=== PATIENT | female | born 1955 | race Caucasian/White ===

== ENCOUNTER 2018-07-30 07:52 | Outpatient (CLI) | payer BC, OTHER ==
[~2018-07-30 07:52] MED LIST: ASPI-515 PO; MAGNESIUM COMPLEX; OMEG300C PO; RED YEAST RICE; UBID100C10 PO; VIT C PO; VIT D3 PO; [UNRECOGNIZED DRUG - OTHER] PO
== END 2018-07-30 23:59 | disposition home or self-care (01) ==
LOC: WOUND 07:52
PROVIDERS: ATTEND Family Medicine
DX: I87.313 Chronic venous hypertension (idiopathic) with ulcer of bilateral lower extremity (principal); L97.815 Non-pressure chronic ulcer of other part of right lower leg with muscle involvement without evidence of necrosis; L97.825 Non-pressure chronic ulcer of other part of left lower leg with muscle involvement without evidence of necrosis; L97.515 Non-pressure chronic ulcer of other part of right foot with muscle involvement without evidence of necrosis; L97.525 Non-pressure chronic ulcer of other part of left foot with muscle involvement without evidence of necrosis; L97.325 Non-pressure chronic ulcer of left ankle with muscle involvement without evidence of necrosis; I15.0 Renovascular hypertension; I48.2 Chronic atrial fibrillation; E66.01 Morbid (severe) obesity due to excess calories; Z68.28 Body mass index [BMI] 28.0-28.9, adult
CPT/HCPCS: 11043; 11046; 87070; 87077; 87186; 87205; 99215

== ENCOUNTER → 2018-08-03 | Outpatient (CLI) | payer OTHER | END | disposition home or self-care (01) | LOC: WOUND 07:52 | PROVIDERS: ATTEND Internal Medicine Cardiovascular Disease | DX: I87.313 Chronic venous hypertension (idiopathic) with ulcer of bilateral lower extremity (principal); L97.811 Non-pressure chronic ulcer of other part of right lower leg limited to breakdown of skin; L97.821 Non-pressure chronic ulcer of other part of left lower leg limited to breakdown of skin; I15.0 Renovascular hypertension; I48.2 Chronic atrial fibrillation; E66.01 Morbid (severe) obesity due to excess calories | CPT/HCPCS: G0463 ==

== ENCOUNTER → 2018-08-03 | Outpatient (CLI) | payer OTHER | END | disposition home or self-care (01) | LOC: RAD 10:03 | PROVIDERS: ATTEND Specialist | DX: R60.0 Localized edema (principal); L97.928 Non-pressure chronic ulcer of unspecified part of left lower leg with other specified severity; L97.918 Non-pressure chronic ulcer of unspecified part of right lower leg with other specified severity ==

== ENCOUNTER 2018-08-06 13:51 | Inpatient (IN) | payer OTHER ==
[~2018-08-06] VITALS: Ht 177.8 cm; Wt 108.6 kg
[~2018-08-06 13:51] MED LIST changes: -AMOX1TAB64 PO; -CLON0.1T22 PO; -DOXY100T PO
[2018-08-06 14:20] VITALS: BP 138/77
[2018-08-06] MEDS ORDERED: GENTAMICIN CRM 0.1%, 30GM TP SCH (15:00)
[2018-08-06] MEDS ORDERED: ONDANSETRON 2MG/ML, 2ML IVPush PRN (15:30)
[2018-08-06] MEDS ORDERED: LABETALOL 5MG/ML, 20ML IVPush PRN (15:30)
[2018-08-06] MEDS ORDERED: BISACODYL 10 MG SUPP PR PRN (15:30)
[2018-08-06] MEDS ORDERED: ONDANSETRON ODT 4 MG PO PRN (15:30)
[2018-08-06] MEDS ORDERED: ENALAPRILAT 1.25 MG/ML, 2ML IVPush PRN (15:30)
[2018-08-06] MEDS ORDERED: DOCUSATE 100 MG CAPSULE PO PRN (15:30)
[2018-08-06] MEDS ORDERED: ACETAMINOPHEN 325 MG TABLET PO PRN (15:30)
[2018-08-06] MEDS: SODIUM CHLORIDE 0.9% 1,000 ML IV SCH (16:05)
[2018-08-06] MEDS: ENOXAPARIN 40 MG/0.4 ML SQ SCH (16:06)
[2018-08-06 16:24] LABS: BASOPHILS # (AUTO) 0.07 x10^3/uL (0-0.1); BASOPHILS % (AUTO) 1 % (0-1); EOSINOPHILS # (AUTO) 0.14 x10^3/uL (0-0.4); EOSINOPHILS % (AUTO) 1 % (1-7); LYMPHOCYTES % (AUTO) 9 % (22-44); MD NO; MEAN CORPUSCULAR HEMOGLOBIN 26.9 pg (27.0-34.8); MEAN CORPUSCULAR HGB CONC 32.5 g/dL (32.4-35.8); MEAN CORPUSCULAR VOLUME 82.7 fL (80-100); MEAN PLATELET VOLUME 8.1 fL (7.4-10.4); MONOCYTES % (AUTO) 7 % (2-9); NEUTROPHILS # (AUTO) 10.07 x10^3/uL (1.8-6.8); NEUTROPHILS % (AUTO) 83 % (42-75); PLATELET COUNT 401 x10^3/uL (130-400); RED BLOOD COUNT 4.68 x10^6/uL (3.82-5.3); RED CELL DISTRIBUTION WIDTH 18.5 % (9.6-15.2)
[2018-08-06 16:25] LABS: HCT (SEDRATE) 38.4 % (34.6-47.8)
[2018-08-06] MEDS ORDERED: VANCOMYCIN PER PHARMACY MC PRN (16:30)
[2018-08-06 16:35] LABS: ANION GAP 9 mmol/L (5-15); CHLORIDE 100 mmol/L (98-107); CREATININE 1.45 mg/dL (0.55-1.02)
[2018-08-06] MEDS: PIPERACILLIN/TAZO/PMX 3.375GM 50 ML IV SCH ×2 (16:53→22:59)
[2018-08-06] MEDS: DAKIN'S SOLUTION 1/4 STRENGTH 1,000 ML IRRIG SOLN EXT SCH (16:53)
[2018-08-06 19:57] VITALS: BP 157/97
[2018-08-06] MEDS ORDERED: PHARMACOKINETIC MONITORING MC PRN (20:00)
[2018-08-06] MEDS ORDERED: VANCOMYCIN 1,800 MG in SODIUM CHLORIDE 0.9% 250 ML IV ONE (20:00)
[2018-08-07 00:23] VITALS: BP 152/89
[2018-08-07] MEDS: PIPERACILLIN/TAZO/PMX 3.375GM 50 ML IV SCH ×2 (04:35→10:50)
[2018-08-07] MEDS: SODIUM CHLORIDE 0.9% 1,000 ML IV SCH ×2 (04:36→14:55)
[2018-08-07 05:22] LABS: BASOPHILS # (AUTO) 0.05 x10^3/uL (0-0.1); BASOPHILS % (AUTO) 0 % (0-1); EOSINOPHILS # (AUTO) 0.15 x10^3/uL (0-0.4); EOSINOPHILS % (AUTO) 1 % (1-7); LYMPHOCYTES # (AUTO) 0.83 x10^3/uL (1-3.4); LYMPHOCYTES % (AUTO) 6 % (22-44); MD NO; MEAN CORPUSCULAR HEMOGLOBIN 26.6 pg (27.0-34.8); MEAN CORPUSCULAR HGB CONC 32.1 g/dL (32.4-35.8); MEAN CORPUSCULAR VOLUME 82.8 fL (80-100); MEAN PLATELET VOLUME 7.9 fL (7.4-10.4); MONOCYTES % (AUTO) 7 % (2-9); NEUTROPHILS % (AUTO) 86 % (42-75); PLATELET COUNT 318 x10^3/uL (130-400); RED CELL DISTRIBUTION WIDTH 18.5 % (9.6-15.2)
[2018-08-07 05:32] LABS: ANION GAP 6 mmol/L (5-15); CALCIUM 8.4 mg/dL (8.5-10.1); CHLORIDE 108 mmol/L (98-107)
[2018-08-07 07:00] VITALS: BP 144/84
[2018-08-07] MEDS ORDERED: UBIDECARENONE 300 MG PO SCH (09:00)
[2018-08-07] MEDS: SENNA/DOCUSATE TABLET PO SCH (09:00)
[2018-08-07] MEDS ORDERED: [UNRECOGNIZED DRUG - OTHER] PO SCH (09:00)
[2018-08-07] MEDS ORDERED: ASCORBIC ACID PO SCH (09:00)
[2018-08-07] MEDS ORDERED: GENTAMICIN OINT 0.1% 15GM TP SCH (09:00)
[2018-08-07 12:20] LABS: HEMOGLOBIN A1C 5.5 % (4.2-6.3)
[2018-08-07] MEDS: DAKIN'S SOLUTION 1/4 STRENGTH 1,000 ML IRRIG SOLN EXT SCH (13:15)
[2018-08-07] MEDS: GENTAMICIN OINT 0.1% 15GM TP SCH (13:15)
[2018-08-07 15:16] VITALS: BP 141/91
[2018-08-07] MEDS: ENOXAPARIN 40 MG/0.4 ML SQ SCH (15:30)
[2018-08-07] MEDS: PIPERACILLIN/TAZO/PMX 4.5GM 100 ML IV SCH (16:20)
[2018-08-07 19:55] VITALS: BP 138/91
[2018-08-08 00:39] VITALS: BP 160/99
[2018-08-08] MEDS: SODIUM CHLORIDE 0.9% 1,000 ML IV SCH ×2 (00:41→12:17)
[2018-08-08] MEDS: PIPERACILLIN/TAZO/PMX 4.5GM 100 ML IV SCH ×3 (00:42→17:04)
[2018-08-08 05:34] LABS: BASOPHILS # (AUTO) 0.03 x10^3/uL (0-0.1); BASOPHILS % (AUTO) 0 % (0-1); EOSINOPHILS # (AUTO) 0.23 x10^3/uL (0-0.4); EOSINOPHILS % (AUTO) 2 % (1-7); LYMPHOCYTES # (AUTO) 1.02 x10^3/uL (1-3.4); LYMPHOCYTES % (AUTO) 11 % (22-44); MD NO; MEAN CORPUSCULAR HGB CONC 32.9 g/dL (32.4-35.8); MONOCYTES # (AUTO) 0.58 x10^3/uL (0.2-0.8); MONOCYTES % (AUTO) 6 % (2-9); NEUTROPHILS # (AUTO) 7.67 x10^3/uL (1.8-6.8); NEUTROPHILS % (AUTO) 81 % (42-75); PLATELET COUNT 334 x10^3/uL (130-400); RED BLOOD COUNT 4.21 x10^6/uL (3.82-5.3); RED CELL DISTRIBUTION WIDTH 18.7 % (9.6-15.2)
[2018-08-08 05:41] LABS: ANION GAP 6 mmol/L (5-15); CALCIUM 8.2 mg/dL (8.5-10.1); CHLORIDE 109 mmol/L (98-107)
[2018-08-08 07:36] VITALS: BP 154/98
[2018-08-08] MEDS: SENNA/DOCUSATE TABLET PO SCH (08:10)
[2018-08-08] MEDS: DAKIN'S SOLUTION 1/4 STRENGTH 1,000 ML IRRIG SOLN EXT SCH (08:10)
[2018-08-08] MEDS: GENTAMICIN OINT 0.1% 15GM TP SCH (08:11)
[2018-08-08] MEDS: ENOXAPARIN 40 MG/0.4 ML SQ SCH (12:19)
[2018-08-08] MEDS ORDERED: MIDAZOLAM 1 MG/ML, 2ML ONE (14:37)
[2018-08-08] MEDS ORDERED: FENTANYL PF 100 MCG/2ML ONE ×4 (14:37→16:09)
[2018-08-08] MEDS ORDERED: ONDANSETRON 2MG/ML, 2ML ONE (14:43)
[2018-08-08] MEDS ORDERED: PROPOFOL 10 MG/ML, 20ML ONE (14:43)
[2018-08-08] MEDS ORDERED: ESMOLOL 100 MG/10 ML ONE (14:43)
[2018-08-08] MEDS ORDERED: SUCCINYLCHOLINE 20 MG/ML, 10ML ONE (14:43)
[2018-08-08] MEDS ORDERED: HYDROmorphone 2 MG/ML, 1ML ONE (15:55)
[2018-08-08] MEDS ORDERED: OXYcodone 5 MG/5 ML ORAL.SOL UDC ONE (15:55)
[2018-08-08] MEDS: FENTANYL PF 100 MCG/2ML IV PRN ×4 (15:56→16:45)
[2018-08-08] MEDS ORDERED: ACETAMINOPHEN 650 MG/20.3 ML UDC ONE (15:56)
[2018-08-08] MEDS ORDERED: OXYcodone 5 MG/5 ML ORAL.SOL UDC PO PRN (16:00)
[2018-08-08] MEDS ORDERED: ACETAMINOPHEN 325 MG TABLET PO PRN (16:00)
[2018-08-08] MEDS ORDERED: KETOROLAC 30 MG/1 ML IV PRN (16:00)
[2018-08-08] MEDS ORDERED: MEPERIDINE/PF 25MG/0.5ML IVPush PRN (16:00)
[2018-08-08] MEDS ORDERED: METOCLOPRAMIDE 5 MG/ML, 2ML IV PRN (16:00)
[2018-08-08] MEDS ORDERED: LABETALOL 5MG/ML, 20ML IV PRN (16:00)
[2018-08-08] MEDS ORDERED: METOPROLOL 1 MG/ML, 5ML IV PRN (16:00)
[2018-08-08] MEDS: HYDROmorphone 2 MG/ML, 1ML IVPush PRN ×4 (16:01→16:34)
[2018-08-08] MEDS ORDERED: LORazepam 2 MG/ML, 1ML ONE (16:02)
[2018-08-08] MEDS: LORazepam 2 MG/ML, 1ML IVPush PRN ×3 (16:05→16:21)
[2018-08-08 20:05] VITALS: BP 155/98
[2018-08-09] VITALS: BP 108/75
[2018-08-09 00:01] VITALS: BP 120/72
[2018-08-09] MEDS: PIPERACILLIN/TAZO/PMX 4.5GM 100 ML IV SCH ×3 (01:18→17:12)
[2018-08-09] MEDS: SODIUM CHLORIDE 0.9% 1,000 ML IV SCH ×3 (01:19→22:44)
[2018-08-09 04:11] VITALS: BP 136/82
[2018-08-09] MEDS: HYDROcodone/APAP 5/325 TABLET PO PRN ×3 (04:36→21:47)
[2018-08-09 07:15] VITALS: BP 130/65
[2018-08-09] MEDS: DAKIN'S SOLUTION 1/4 STRENGTH 1,000 ML IRRIG SOLN EXT SCH (08:29)
[2018-08-09] MEDS: GENTAMICIN OINT 0.1% 15GM TP SCH (08:29)
[2018-08-09] MEDS: SENNA/DOCUSATE TABLET PO SCH (08:29)
[2018-08-09 13:15] VITALS: BP 153/90
[2018-08-09 13:27] LABS: CULTURE INDICATED? YES; MICROSCOPIC INDICATED
[2018-08-09] MEDS: ENOXAPARIN 40 MG/0.4 ML SQ SCH (15:35)
[2018-08-09 20:02] VITALS: BP 156/93
[2018-08-10] MEDS: PIPERACILLIN/TAZO/PMX 4.5GM 100 ML IV SCH ×3 (01:51→16:42)
[2018-08-10 02:30] VITALS: BP 140/82
[2018-08-10 07:37] VITALS: BP 152/88
[2018-08-10] MEDS: DOXYCYCLINE 100MG TABLET PO SCH ×2 (08:56→21:43)
[2018-08-10] MEDS: SENNA/DOCUSATE TABLET PO SCH (08:56)
[2018-08-10] MEDS: GENTAMICIN OINT 0.1% 15GM TP SCH (08:57)
[2018-08-10] MEDS: SODIUM CHLORIDE 0.9% 1,000 ML IV SCH ×2 (08:58→19:51)
[2018-08-10 13:59] VITALS: BP 154/99
[2018-08-10] MEDS: ENOXAPARIN 40 MG/0.4 ML SQ SCH (16:09)
[2018-08-10 19:04] VITALS: BP 150/97
[2018-08-10] MEDS: HYDROcodone/APAP 5/325 TABLET PO PRN (22:04)
[2018-08-11] MEDS: PIPERACILLIN/TAZO/PMX 4.5GM 100 ML IV SCH ×3 (01:25→20:20)
[2018-08-11 03:11] VITALS: BP 130/91
[2018-08-11] MEDS: SODIUM CHLORIDE 0.9% 1,000 ML IV SCH ×2 (06:14→20:19)
[2018-08-11 07:30] VITALS: BP 153/99
[2018-08-11] MEDS: SENNA/DOCUSATE TABLET PO SCH (09:10)
[2018-08-11] MEDS: DOXYCYCLINE 100MG TABLET PO SCH ×2 (09:10→13:33)
[2018-08-11] MEDS: GENTAMICIN OINT 0.1% 15GM TP SCH (09:11)
[2018-08-11 13:06] VITALS: BP 155/102
[2018-08-11] MEDS: HYDROcodone/APAP 5/325 TABLET PO PRN (13:33)
[2018-08-11] MEDS ORDERED: MORPHINE SULFATE 4 MG/ML, 1ML IVPush ONE ×3 (14:30→15:00)
[2018-08-11] MEDS ORDERED: morphine SULFATE 10 MG/ML, 1ML ONE ×2 (14:31→14:54)
[2018-08-11 15:15] LABS: CLOSTRIDIUM DIFFICILE ANTIGEN NEGATIVE; CLOSTRIDIUM DIFFICILE TOXIN NEGATIVE (Negative)
[2018-08-11] MEDS: ENOXAPARIN 40 MG/0.4 ML SQ SCH (15:29)
[2018-08-11 19:22] VITALS: BP 142/89
[2018-08-12 01:14] VITALS: BP 153/65
[2018-08-12] MEDS: SODIUM CHLORIDE 0.9% 1,000 ML IV SCH ×2 (04:33→17:32)
[2018-08-12] MEDS: PIPERACILLIN/TAZO/PMX 4.5GM 100 ML IV SCH ×3 (04:33→20:26)
[2018-08-12 07:39] LABS: INTERNATIONAL NORMALIZED RATIO 1.14 (0.93-1.1)
[2018-08-12 07:50] VITALS: BP 158/95
[2018-08-12] MEDS ORDERED: hydrALAzine 20 MG/ML, 1ML IV ONE (08:30)
[2018-08-12] MEDS: FLUCONAZOLE 200 MG TABLET PO SCH (09:00)
[2018-08-12] MEDS: DOXYCYCLINE 100MG TABLET PO SCH ×2 (09:00→20:26)
[2018-08-12] MEDS: SENNA/DOCUSATE TABLET PO SCH (09:00)
[2018-08-12] MEDS: GENTAMICIN OINT 0.1% 15GM TP SCH (09:00)
[2018-08-12 13:25] VITALS: BP 143/89
[2018-08-12] MEDS ORDERED: LIDOCAINE-MPF 1%, 5ML ONE (13:45)
[2018-08-12] MEDS ORDERED: MIDAZOLAM 1 MG/ML, 5ML ONE (14:11)
[2018-08-12] MEDS ORDERED: FLUMAZENIL 0.1 MG/1 ML, 5ML ONE (14:11)
[2018-08-12] MEDS ORDERED: NALOXONE 1 MG/ML, 2ML ONE (14:11)
[2018-08-12] MEDS ORDERED: FENTANYL PF 100 MCG/2ML ONE (14:11)
[2018-08-12] MEDS: ENOXAPARIN 40 MG/0.4 ML SQ SCH (17:31)
[2018-08-12 18:58] VITALS: BP 160/99
[2018-08-13 00:27] VITALS: BP 154/90
[2018-08-13] MEDS: SODIUM CHLORIDE 0.9% 1,000 ML IV SCH ×2 (03:03→12:00)
[2018-08-13] MEDS: PIPERACILLIN/TAZO/PMX 4.5GM 100 ML IV SCH ×2 (03:38→12:00)
[2018-08-13 05:23] LABS: BASOPHILS # (AUTO) 0.02 x10^3/uL (0-0.1); BASOPHILS % (AUTO) 0 % (0-1); EOSINOPHILS # (AUTO) 0.24 x10^3/uL (0-0.4); EOSINOPHILS % (AUTO) 2 % (1-7); LYMPHOCYTES # (AUTO) 0.86 x10^3/uL (1-3.4); LYMPHOCYTES % (AUTO) 9 % (22-44); MD NO; MEAN CORPUSCULAR HEMOGLOBIN 27.6 pg (27.0-34.8); MEAN CORPUSCULAR VOLUME 83.6 fL (80-100); MEAN PLATELET VOLUME 7.8 fL (7.4-10.4); MONOCYTES # (AUTO) 0.53 x10^3/uL (0.2-0.8); MONOCYTES % (AUTO) 5 % (2-9); NEUTROPHILS # (AUTO) 8.37 x10^3/uL (1.8-6.8); NEUTROPHILS % (AUTO) 84 % (42-75); PLATELET COUNT 332 x10^3/uL (130-400); RED BLOOD COUNT 4.01 x10^6/uL (3.82-5.3); RED CELL DISTRIBUTION WIDTH 19.4 % (9.6-15.2)
[2018-08-13 05:29] LABS: ANION GAP 6 mmol/L (5-15); CALCIUM 8.5 mg/dL (8.5-10.1); CHLORIDE 112 mmol/L (98-107); CREATININE 0.82 mg/dL (0.55-1.02)
[2018-08-13 06:52] VITALS: BP 155/96
[2018-08-13] MEDS: FLUCONAZOLE 200 MG TABLET PO SCH (08:36)
[2018-08-13] MEDS: DOXYCYCLINE 100MG TABLET PO SCH (08:36)
[2018-08-13] MEDS: GENTAMICIN OINT 0.1% 15GM TP SCH (09:00)
[2018-08-13] MEDS: SENNA/DOCUSATE TABLET PO SCH (09:00)
[2018-08-13] MEDS ORDERED: DOXY100T PO (10:33)
[2018-08-13] MEDS ORDERED: AMOX1TAB64 PO (10:33)
[2018-08-13] MEDS ORDERED: CLON0.1T22 PO (10:33)
[2018-08-13 12:28] VITALS: BP 153/87
== END 2018-08-13 13:09 | disposition home or self-care (01) | DRG 580 ==
LOC: 4NOR 13:51 → DCLOUNGE 08-13 12:50
PROVIDERS: ADMIT Internal Medicine; ATTEND Family Medicine
PROC: 0KBS0ZZ Excision of Right Lower Leg Muscle, Open Approach (ICD-10-PCS; 2018-08-08)
PROC: 0KBT0ZZ Excision of Left Lower Leg Muscle, Open Approach (ICD-10-PCS; principal; 2018-08-08 15:00)
DX: L88 Pyoderma gangrenosum (principal); B37.49 Other urogenital candidiasis; N17.9 Acute kidney failure, unspecified; L03.116 Cellulitis of left lower limb; L03.115 Cellulitis of right lower limb; L97.519 Non-pressure chronic ulcer of other part of right foot with unspecified severity; L97.529 Non-pressure chronic ulcer of other part of left foot with unspecified severity; I48.91 Unspecified atrial fibrillation; E66.01 Morbid (severe) obesity due to excess calories; Z16.24 Resistance to multiple antibiotics; Z66 Do not resuscitate; Z91.19 Patient's noncompliance with other medical treatment and regimen; B95.61 Methicillin susceptible Staphylococcus aureus infection as the cause of diseases classified elsewhere; B96.89 Other specified bacterial agents as the cause of diseases classified elsewhere; Z68.34 Body mass index [BMI] 34.0-34.9, adult; I12.9 Hypertensive chronic kidney disease with stage 1 through stage 4 chronic kidney disease, or unspecified chronic kidney disease; N18.9 Chronic kidney disease, unspecified; I87.8 Other specified disorders of veins
CPT/HCPCS: 36415; 80048; 81001; 82570; 82784; 83036; 83735; 83993; 84155; 84156; 84165; 84166; 84439; 84443; 85025; 85610; 85651; 86140; 86160; 86162; 86256; 86334; 86335; 86430; 86803; 87040; 87070; 87077; 87086; 87106; 87186; 87205; 87324; 87340; 88304; 88312; 93005; 93922; 97163; G0378; J1170; J1650; J2250; J2405; J2543; J2704; J3010; J3370; J0330; J0360; J2060; J2310; J7030; J7050

== ENCOUNTER → 2018-08-06 | Outpatient (CLI) | payer OTHER ==
[~2018-08-06] MED LIST changes: +AMOX1TAB64 PO; +CLON0.1T22 PO; +DOXY100T PO
== END | disposition home or self-care (01) ==
LOC: WOUND 08:05
PROVIDERS: ATTEND Family Medicine
DX: I87.313 Chronic venous hypertension (idiopathic) with ulcer of bilateral lower extremity (principal); L97.515 Non-pressure chronic ulcer of other part of right foot with muscle involvement without evidence of necrosis; L97.811 Non-pressure chronic ulcer of other part of right lower leg limited to breakdown of skin; L97.821 Non-pressure chronic ulcer of other part of left lower leg limited to breakdown of skin; L97.521 Non-pressure chronic ulcer of other part of left foot limited to breakdown of skin; L97.321 Non-pressure chronic ulcer of left ankle limited to breakdown of skin; L08.0 Pyoderma; I15.0 Renovascular hypertension; I48.2 Chronic atrial fibrillation; E66.01 Morbid (severe) obesity due to excess calories; Z68.28 Body mass index [BMI] 28.0-28.9, adult
CPT/HCPCS: 99215

== ENCOUNTER → 2018-08-16 | Outpatient (CLI) | payer OTHER ==
[~2018-08-16] MED LIST changes: +AMOX1TAB64 PO; +CLON0.1T22 PO; +DOXY100T PO
== END | disposition home or self-care (01) ==
LOC: WOUND 13:05
PROVIDERS: ATTEND Family Medicine
DX: I87.313 Chronic venous hypertension (idiopathic) with ulcer of bilateral lower extremity (principal); L97.811 Non-pressure chronic ulcer of other part of right lower leg limited to breakdown of skin; L97.515 Non-pressure chronic ulcer of other part of right foot with muscle involvement without evidence of necrosis; L97.821 Non-pressure chronic ulcer of other part of left lower leg limited to breakdown of skin; L97.321 Non-pressure chronic ulcer of left ankle limited to breakdown of skin; L97.521 Non-pressure chronic ulcer of other part of left foot limited to breakdown of skin; I12.9 Hypertensive chronic kidney disease with stage 1 through stage 4 chronic kidney disease, or unspecified chronic kidney disease; N18.9 Chronic kidney disease, unspecified; I48.2 Chronic atrial fibrillation; E66.01 Morbid (severe) obesity due to excess calories; Z68.28 Body mass index [BMI] 28.0-28.9, adult
CPT/HCPCS: 97597; 97598

== ENCOUNTER → 2018-08-18 | Outpatient (CLI) | payer OTHER | END | disposition home or self-care (01) | LOC: WOUND 13:00 | PROVIDERS: ATTEND Internal Medicine Cardiovascular Disease | DX: I87.313 Chronic venous hypertension (idiopathic) with ulcer of bilateral lower extremity (principal); L97.815 Non-pressure chronic ulcer of other part of right lower leg with muscle involvement without evidence of necrosis; L97.511 Non-pressure chronic ulcer of other part of right foot limited to breakdown of skin; L97.821 Non-pressure chronic ulcer of other part of left lower leg limited to breakdown of skin; L97.321 Non-pressure chronic ulcer of left ankle limited to breakdown of skin; L97.521 Non-pressure chronic ulcer of other part of left foot limited to breakdown of skin; I12.9 Hypertensive chronic kidney disease with stage 1 through stage 4 chronic kidney disease, or unspecified chronic kidney disease; N18.9 Chronic kidney disease, unspecified; I48.2 Chronic atrial fibrillation; Z68.28 Body mass index [BMI] 28.0-28.9, adult; E66.01 Morbid (severe) obesity due to excess calories | CPT/HCPCS: 29581 ==

== ENCOUNTER → 2018-08-20 | Outpatient (CLI) | payer OTHER | END | disposition home or self-care (01) | LOC: WOUND 12:50 | PROVIDERS: ATTEND Family Medicine | DX: I87.313 Chronic venous hypertension (idiopathic) with ulcer of bilateral lower extremity (principal); L97.811 Non-pressure chronic ulcer of other part of right lower leg limited to breakdown of skin; L97.821 Non-pressure chronic ulcer of other part of left lower leg limited to breakdown of skin; I12.9 Hypertensive chronic kidney disease with stage 1 through stage 4 chronic kidney disease, or unspecified chronic kidney disease; N18.9 Chronic kidney disease, unspecified; I48.2 Chronic atrial fibrillation; E66.01 Morbid (severe) obesity due to excess calories | CPT/HCPCS: 29581 ==

== ENCOUNTER → 2018-08-23 | Outpatient (CLI) | payer BC, OTHER | END | disposition home or self-care (01) | LOC: WOUND 14:13 | PROVIDERS: ATTEND Family Medicine | DX: I87.313 Chronic venous hypertension (idiopathic) with ulcer of bilateral lower extremity (principal); L97.515 Non-pressure chronic ulcer of other part of right foot with muscle involvement without evidence of necrosis; L97.825 Non-pressure chronic ulcer of other part of left lower leg with muscle involvement without evidence of necrosis; L97.525 Non-pressure chronic ulcer of other part of left foot with muscle involvement without evidence of necrosis; L97.321 Non-pressure chronic ulcer of left ankle limited to breakdown of skin; I12.9 Hypertensive chronic kidney disease with stage 1 through stage 4 chronic kidney disease, or unspecified chronic kidney disease; N18.9 Chronic kidney disease, unspecified; I48.2 Chronic atrial fibrillation; E66.01 Morbid (severe) obesity due to excess calories | CPT/HCPCS: 11042; 11043; 11046; 97597; 97598 ==

== ENCOUNTER 2018-08-27 14:05 | Outpatient (CLI) | payer OTHER | END 2018-08-27 23:59 | disposition home or self-care (01) | LOC: WOUND 14:05 | PROVIDERS: ATTEND Internal Medicine Cardiovascular Disease | DX: I87.313 Chronic venous hypertension (idiopathic) with ulcer of bilateral lower extremity (principal); L97.811 Non-pressure chronic ulcer of other part of right lower leg limited to breakdown of skin; L97.821 Non-pressure chronic ulcer of other part of left lower leg limited to breakdown of skin; I12.9 Hypertensive chronic kidney disease with stage 1 through stage 4 chronic kidney disease, or unspecified chronic kidney disease; N18.9 Chronic kidney disease, unspecified; I48.2 Chronic atrial fibrillation; E66.01 Morbid (severe) obesity due to excess calories | CPT/HCPCS: 29581 ==

== ENCOUNTER → 2018-08-31 | Outpatient (CLI) | payer BC, OTHER | END | disposition home or self-care (01) | LOC: WOUND 10:57 | PROVIDERS: ATTEND Internal Medicine Cardiovascular Disease | DX: I87.313 Chronic venous hypertension (idiopathic) with ulcer of bilateral lower extremity (principal); L97.811 Non-pressure chronic ulcer of other part of right lower leg limited to breakdown of skin; L97.821 Non-pressure chronic ulcer of other part of left lower leg limited to breakdown of skin; I12.9 Hypertensive chronic kidney disease with stage 1 through stage 4 chronic kidney disease, or unspecified chronic kidney disease; N18.9 Chronic kidney disease, unspecified; I48.2 Chronic atrial fibrillation; E66.01 Morbid (severe) obesity due to excess calories | CPT/HCPCS: 29581 ==

== ENCOUNTER 2018-09-03 13:43 | Outpatient (CLI) | payer BC | END 2018-09-03 23:59 | disposition home or self-care (01) | LOC: WOUND 13:43 | PROVIDERS: ATTEND Family Medicine | DX: I87.313 Chronic venous hypertension (idiopathic) with ulcer of bilateral lower extremity (principal); L97.812 Non-pressure chronic ulcer of other part of right lower leg with fat layer exposed; L97.515 Non-pressure chronic ulcer of other part of right foot with muscle involvement without evidence of necrosis; L97.822 Non-pressure chronic ulcer of other part of left lower leg with fat layer exposed; L97.525 Non-pressure chronic ulcer of other part of left foot with muscle involvement without evidence of necrosis; L97.322 Non-pressure chronic ulcer of left ankle with fat layer exposed; I13.10 Hypertensive heart and chronic kidney disease without heart failure, with stage 1 through stage 4 chronic kidney disease, or unspecified chronic kidney disease; N18.9 Chronic kidney disease, unspecified; I15.0 Renovascular hypertension; I48.2 Chronic atrial fibrillation; E66.01 Morbid (severe) obesity due to excess calories | CPT/HCPCS: 11042; 11045 ==

== ENCOUNTER → 2018-09-07 | Outpatient (CLI) | payer BC | END | disposition home or self-care (01) | LOC: WOUND 13:10 | PROVIDERS: ATTEND Nurse Practitioner Family | DX: I87.313 Chronic venous hypertension (idiopathic) with ulcer of bilateral lower extremity (principal); I12.9 Hypertensive chronic kidney disease with stage 1 through stage 4 chronic kidney disease, or unspecified chronic kidney disease; N18.9 Chronic kidney disease, unspecified; I48.2 Chronic atrial fibrillation; E66.01 Morbid (severe) obesity due to excess calories; Z68.28 Body mass index [BMI] 28.0-28.9, adult | CPT/HCPCS: 99215 ==

== ENCOUNTER 2018-09-10 13:21 | Outpatient (CLI) | payer BC | END 2018-09-10 23:59 | disposition home or self-care (01) | LOC: WOUND 13:21 | PROVIDERS: ATTEND Family Medicine | DX: I87.313 Chronic venous hypertension (idiopathic) with ulcer of bilateral lower extremity (principal); L97.815 Non-pressure chronic ulcer of other part of right lower leg with muscle involvement without evidence of necrosis; L97.515 Non-pressure chronic ulcer of other part of right foot with muscle involvement without evidence of necrosis; L97.825 Non-pressure chronic ulcer of other part of left lower leg with muscle involvement without evidence of necrosis; L97.525 Non-pressure chronic ulcer of other part of left foot with muscle involvement without evidence of necrosis; L97.325 Non-pressure chronic ulcer of left ankle with muscle involvement without evidence of necrosis; I15.0 Renovascular hypertension; I48.2 Chronic atrial fibrillation; E66.01 Morbid (severe) obesity due to excess calories; Z68.28 Body mass index [BMI] 28.0-28.9, adult | CPT/HCPCS: 11042; 11043; 11045; 11046 ==

== ENCOUNTER → 2018-09-14 | Outpatient (CLI) | payer BC | END | disposition home or self-care (01) | LOC: WOUND 13:56 | PROVIDERS: ATTEND Nurse Practitioner Family | DX: I87.313 Chronic venous hypertension (idiopathic) with ulcer of bilateral lower extremity (principal); L97.812 Non-pressure chronic ulcer of other part of right lower leg with fat layer exposed; L97.515 Non-pressure chronic ulcer of other part of right foot with muscle involvement without evidence of necrosis; L97.822 Non-pressure chronic ulcer of other part of left lower leg with fat layer exposed; L97.525 Non-pressure chronic ulcer of other part of left foot with muscle involvement without evidence of necrosis; L97.322 Non-pressure chronic ulcer of left ankle with fat layer exposed; I13.10 Hypertensive heart and chronic kidney disease without heart failure, with stage 1 through stage 4 chronic kidney disease, or unspecified chronic kidney disease; N18.9 Chronic kidney disease, unspecified; I15.0 Renovascular hypertension; I48.2 Chronic atrial fibrillation; E66.01 Morbid (severe) obesity due to excess calories | CPT/HCPCS: 29581 ==

== ENCOUNTER → 2018-09-17 | Outpatient (CLI) | payer BC | END | disposition home or self-care (01) | LOC: WOUND 13:42 | PROVIDERS: ATTEND Family Medicine | DX: I87.313 Chronic venous hypertension (idiopathic) with ulcer of bilateral lower extremity (principal); L97.811 Non-pressure chronic ulcer of other part of right lower leg limited to breakdown of skin; L97.515 Non-pressure chronic ulcer of other part of right foot with muscle involvement without evidence of necrosis; L97.821 Non-pressure chronic ulcer of other part of left lower leg limited to breakdown of skin; L97.321 Non-pressure chronic ulcer of left ankle limited to breakdown of skin; L97.525 Non-pressure chronic ulcer of other part of left foot with muscle involvement without evidence of necrosis; I15.0 Renovascular hypertension; I48.2 Chronic atrial fibrillation; E66.01 Morbid (severe) obesity due to excess calories; Z68.28 Body mass index [BMI] 28.0-28.9, adult | CPT/HCPCS: 97597; 97598 ==

== ENCOUNTER → 2018-09-21 | Outpatient (CLI) | payer BC | END | disposition home or self-care (01) | LOC: WOUND 10:54 | PROVIDERS: ATTEND Internal Medicine | DX: I87.313 Chronic venous hypertension (idiopathic) with ulcer of bilateral lower extremity (principal); L97.811 Non-pressure chronic ulcer of other part of right lower leg limited to breakdown of skin; L97.821 Non-pressure chronic ulcer of other part of left lower leg limited to breakdown of skin; I12.9 Hypertensive chronic kidney disease with stage 1 through stage 4 chronic kidney disease, or unspecified chronic kidney disease; N18.9 Chronic kidney disease, unspecified; I48.2 Chronic atrial fibrillation; E66.01 Morbid (severe) obesity due to excess calories | CPT/HCPCS: 29581 ==

== ENCOUNTER → 2018-09-24 | Outpatient (CLI) | payer BC | END | disposition home or self-care (01) | LOC: WOUND 13:01 | PROVIDERS: ATTEND Family Medicine | DX: I87.313 Chronic venous hypertension (idiopathic) with ulcer of bilateral lower extremity (principal); L97.525 Non-pressure chronic ulcer of other part of left foot with muscle involvement without evidence of necrosis; L97.515 Non-pressure chronic ulcer of other part of right foot with muscle involvement without evidence of necrosis; L97.811 Non-pressure chronic ulcer of other part of right lower leg limited to breakdown of skin; L97.821 Non-pressure chronic ulcer of other part of left lower leg limited to breakdown of skin; L97.321 Non-pressure chronic ulcer of left ankle limited to breakdown of skin; I15.0 Renovascular hypertension; I48.2 Chronic atrial fibrillation; I48.91 Unspecified atrial fibrillation; E66.01 Morbid (severe) obesity due to excess calories; Z68.28 Body mass index [BMI] 28.0-28.9, adult | CPT/HCPCS: 97597; 97598 ==

== ENCOUNTER 2018-09-28 08:02 | Day surgery (SDC) | payer BC ==
[~2018-09-28] VITALS: Ht 177.8 cm; Wt 111.0 kg
[2018-09-28 08:55] VITALS: BP 195/118
[2018-09-28] MEDS ORDERED: LABETALOL 5MG/ML, 20ML IV PRN (09:00)
[2018-09-28] MEDS ORDERED: OXYcodone 5 MG/5 ML ORAL.SOL UDC PO PRN (09:00)
[2018-09-28] MEDS ORDERED: FENTANYL PF 100 MCG/2ML IV PRN (09:00)
[2018-09-28] MEDS ORDERED: MEPERIDINE/PF 25MG/0.5ML IVPush PRN (09:00)
[2018-09-28] MEDS ORDERED: HYDROmorphone 1 MG/ML, 1ML IV PRN (09:00)
[2018-09-28] MEDS ORDERED: MIDAZOLAM 1 MG/ML, 2ML IV PRN (09:00)
[2018-09-28] MEDS ORDERED: ONDANSETRON 2MG/ML, 2ML IVPush PRN (09:00)
[2018-09-28] MEDS ORDERED: LACTATED RINGERS 1,000 ML IV SCH (09:33)
[2018-09-28] MEDS ORDERED: PROPOFOL 10 MG/ML, 20ML ONE (09:59)
== END 2018-09-28 12:05 | disposition home or self-care (01) ==
LOC: OUT 08:02
PROVIDERS: ATTEND Internal Medicine
DX: D12.2 Benign neoplasm of ascending colon (principal); D12.5 Benign neoplasm of sigmoid colon; K62.89 Other specified diseases of anus and rectum; K57.30 Diverticulosis of large intestine without perforation or abscess without bleeding; K64.8 Other hemorrhoids; K62.6 Ulcer of anus and rectum; I10 Essential (primary) hypertension
CPT/HCPCS: 45380; 45385; 45391; 88305; J2704; J7120

== ENCOUNTER 2018-10-01 04:00 | Outpatient (CLI) | payer BC | END 2018-10-01 23:59 | disposition home or self-care (01) | LOC: WOUND 04:00 | PROVIDERS: ATTEND Family Medicine | DX: I87.313 Chronic venous hypertension (idiopathic) with ulcer of bilateral lower extremity (principal); L97.811 Non-pressure chronic ulcer of other part of right lower leg limited to breakdown of skin; L97.515 Non-pressure chronic ulcer of other part of right foot with muscle involvement without evidence of necrosis; L97.821 Non-pressure chronic ulcer of other part of left lower leg limited to breakdown of skin; L97.321 Non-pressure chronic ulcer of left ankle limited to breakdown of skin; L97.525 Non-pressure chronic ulcer of other part of left foot with muscle involvement without evidence of necrosis; I87.2 Venous insufficiency (chronic) (peripheral); I12.9 Hypertensive chronic kidney disease with stage 1 through stage 4 chronic kidney disease, or unspecified chronic kidney disease; N18.9 Chronic kidney disease, unspecified; I48.2 Chronic atrial fibrillation; E66.01 Morbid (severe) obesity due to excess calories; Z68.28 Body mass index [BMI] 28.0-28.9, adult | CPT/HCPCS: 97597; 97598 ==

== ENCOUNTER → 2018-10-05 | Outpatient (CLI) | payer BC | END | disposition home or self-care (01) | LOC: WOUND 13:18 | PROVIDERS: ATTEND Nurse Practitioner Family | DX: I87.313 Chronic venous hypertension (idiopathic) with ulcer of bilateral lower extremity (principal); L97.811 Non-pressure chronic ulcer of other part of right lower leg limited to breakdown of skin; L97.821 Non-pressure chronic ulcer of other part of left lower leg limited to breakdown of skin; I15.0 Renovascular hypertension; I48.2 Chronic atrial fibrillation; E66.01 Morbid (severe) obesity due to excess calories; Z85.038 Personal history of other malignant neoplasm of large intestine | CPT/HCPCS: 29581 ==

== ENCOUNTER 2018-10-08 13:30 | Outpatient (CLI) | payer BC | END 2018-10-08 23:59 | disposition home or self-care (01) | LOC: WOUND 13:30 | PROVIDERS: ATTEND Family Medicine | DX: I87.313 Chronic venous hypertension (idiopathic) with ulcer of bilateral lower extremity (principal); L97.515 Non-pressure chronic ulcer of other part of right foot with muscle involvement without evidence of necrosis; L97.525 Non-pressure chronic ulcer of other part of left foot with muscle involvement without evidence of necrosis; L97.322 Non-pressure chronic ulcer of left ankle with fat layer exposed; L97.811 Non-pressure chronic ulcer of other part of right lower leg limited to breakdown of skin; L97.821 Non-pressure chronic ulcer of other part of left lower leg limited to breakdown of skin; I12.9 Hypertensive chronic kidney disease with stage 1 through stage 4 chronic kidney disease, or unspecified chronic kidney disease; N18.9 Chronic kidney disease, unspecified; I48.2 Chronic atrial fibrillation; E66.01 Morbid (severe) obesity due to excess calories; I48.91 Unspecified atrial fibrillation; Z85.038 Personal history of other malignant neoplasm of large intestine | CPT/HCPCS: 11042; 11043; 11045; 11046; 97597; 97598 ==

== ENCOUNTER → 2018-10-15 | Outpatient (CLI) | payer BC | END | disposition home or self-care (01) | LOC: WOUND 14:35 | PROVIDERS: ATTEND Family Medicine | DX: I87.313 Chronic venous hypertension (idiopathic) with ulcer of bilateral lower extremity (principal); L97.525 Non-pressure chronic ulcer of other part of left foot with muscle involvement without evidence of necrosis; L97.515 Non-pressure chronic ulcer of other part of right foot with muscle involvement without evidence of necrosis; L97.811 Non-pressure chronic ulcer of other part of right lower leg limited to breakdown of skin; L97.821 Non-pressure chronic ulcer of other part of left lower leg limited to breakdown of skin; L97.321 Non-pressure chronic ulcer of left ankle limited to breakdown of skin; I12.9 Hypertensive chronic kidney disease with stage 1 through stage 4 chronic kidney disease, or unspecified chronic kidney disease; N18.9 Chronic kidney disease, unspecified; I48.2 Chronic atrial fibrillation; E66.01 Morbid (severe) obesity due to excess calories; Z68.28 Body mass index [BMI] 28.0-28.9, adult | CPT/HCPCS: 97597; 97598 ==

== ENCOUNTER → 2018-10-22 | Outpatient (CLI) | payer BC | END | disposition home or self-care (01) | LOC: WOUND 10:43 | PROVIDERS: ATTEND Family Medicine | DX: I87.313 Chronic venous hypertension (idiopathic) with ulcer of bilateral lower extremity (principal); L97.525 Non-pressure chronic ulcer of other part of left foot with muscle involvement without evidence of necrosis; L97.515 Non-pressure chronic ulcer of other part of right foot with muscle involvement without evidence of necrosis; L97.811 Non-pressure chronic ulcer of other part of right lower leg limited to breakdown of skin; L97.821 Non-pressure chronic ulcer of other part of left lower leg limited to breakdown of skin; L97.321 Non-pressure chronic ulcer of left ankle limited to breakdown of skin; I12.9 Hypertensive chronic kidney disease with stage 1 through stage 4 chronic kidney disease, or unspecified chronic kidney disease; N18.9 Chronic kidney disease, unspecified; I48.2 Chronic atrial fibrillation; E66.01 Morbid (severe) obesity due to excess calories; Z68.28 Body mass index [BMI] 28.0-28.9, adult | CPT/HCPCS: 97597; 97598 ==

== ENCOUNTER 2018-10-29 10:09 | Outpatient (CLI) | payer BC | END 2018-10-29 23:59 | disposition home or self-care (01) | LOC: WOUND 10:09 | PROVIDERS: ATTEND Family Medicine | DX: I87.313 Chronic venous hypertension (idiopathic) with ulcer of bilateral lower extremity (principal); L97.515 Non-pressure chronic ulcer of other part of right foot with muscle involvement without evidence of necrosis; L97.522 Non-pressure chronic ulcer of other part of left foot with fat layer exposed; L97.321 Non-pressure chronic ulcer of left ankle limited to breakdown of skin; L97.821 Non-pressure chronic ulcer of other part of left lower leg limited to breakdown of skin; L97.811 Non-pressure chronic ulcer of other part of right lower leg limited to breakdown of skin; I15.0 Renovascular hypertension; I48.2 Chronic atrial fibrillation; E66.01 Morbid (severe) obesity due to excess calories; Z68.28 Body mass index [BMI] 28.0-28.9, adult; Z85.038 Personal history of other malignant neoplasm of large intestine | CPT/HCPCS: 11042; 11043; 97597; 97598 ==

== ENCOUNTER 2018-11-05 10:03 | Outpatient (CLI) | payer BC | END 2018-11-05 23:59 | disposition home or self-care (01) | LOC: WOUND 10:03 | PROVIDERS: ATTEND Family Medicine | DX: I87.313 Chronic venous hypertension (idiopathic) with ulcer of bilateral lower extremity (principal); L97.525 Non-pressure chronic ulcer of other part of left foot with muscle involvement without evidence of necrosis; L97.515 Non-pressure chronic ulcer of other part of right foot with muscle involvement without evidence of necrosis; L97.321 Non-pressure chronic ulcer of left ankle limited to breakdown of skin; L97.821 Non-pressure chronic ulcer of other part of left lower leg limited to breakdown of skin; L97.811 Non-pressure chronic ulcer of other part of right lower leg limited to breakdown of skin; I12.9 Hypertensive chronic kidney disease with stage 1 through stage 4 chronic kidney disease, or unspecified chronic kidney disease; N18.9 Chronic kidney disease, unspecified; I48.2 Chronic atrial fibrillation; E66.01 Morbid (severe) obesity due to excess calories; Z68.28 Body mass index [BMI] 28.0-28.9, adult; Z85.038 Personal history of other malignant neoplasm of large intestine | CPT/HCPCS: 11043; 11046; 97597; 97598 ==

== ENCOUNTER 2018-11-12 10:08 | Outpatient (CLI) | payer BC | END 2018-11-12 23:59 | disposition home or self-care (01) | LOC: WOUND 10:08 | PROVIDERS: ATTEND Family Medicine | DX: I87.313 Chronic venous hypertension (idiopathic) with ulcer of bilateral lower extremity (principal); L97.515 Non-pressure chronic ulcer of other part of right foot with muscle involvement without evidence of necrosis; L97.525 Non-pressure chronic ulcer of other part of left foot with muscle involvement without evidence of necrosis; L97.811 Non-pressure chronic ulcer of other part of right lower leg limited to breakdown of skin; L97.321 Non-pressure chronic ulcer of left ankle limited to breakdown of skin; L97.821 Non-pressure chronic ulcer of other part of left lower leg limited to breakdown of skin; I12.9 Hypertensive chronic kidney disease with stage 1 through stage 4 chronic kidney disease, or unspecified chronic kidney disease; N18.9 Chronic kidney disease, unspecified; I48.2 Chronic atrial fibrillation; E66.01 Morbid (severe) obesity due to excess calories; Z68.28 Body mass index [BMI] 28.0-28.9, adult; Z85.038 Personal history of other malignant neoplasm of large intestine | CPT/HCPCS: 11042; 97597; 97598 ==

== ENCOUNTER → 2018-11-19 | Outpatient (CLI) | payer BC | END | disposition home or self-care (01) | LOC: WOUND 12:56 | PROVIDERS: ATTEND Family Medicine | DX: I87.313 Chronic venous hypertension (idiopathic) with ulcer of bilateral lower extremity (principal); L97.515 Non-pressure chronic ulcer of other part of right foot with muscle involvement without evidence of necrosis; L97.525 Non-pressure chronic ulcer of other part of left foot with muscle involvement without evidence of necrosis; L97.811 Non-pressure chronic ulcer of other part of right lower leg limited to breakdown of skin; L97.821 Non-pressure chronic ulcer of other part of left lower leg limited to breakdown of skin; L97.321 Non-pressure chronic ulcer of left ankle limited to breakdown of skin; I12.9 Hypertensive chronic kidney disease with stage 1 through stage 4 chronic kidney disease, or unspecified chronic kidney disease; N18.9 Chronic kidney disease, unspecified; I48.2 Chronic atrial fibrillation; E66.01 Morbid (severe) obesity due to excess calories; Z68.28 Body mass index [BMI] 28.0-28.9, adult; Z85.038 Personal history of other malignant neoplasm of large intestine | CPT/HCPCS: 11043; 97597; 97598 ==

== ENCOUNTER → 2018-11-26 | Outpatient (CLI) | payer BC | END | disposition home or self-care (01) | LOC: WOUND 10:57 | PROVIDERS: ATTEND Family Medicine | DX: I87.313 Chronic venous hypertension (idiopathic) with ulcer of bilateral lower extremity (principal); L97.525 Non-pressure chronic ulcer of other part of left foot with muscle involvement without evidence of necrosis; L97.515 Non-pressure chronic ulcer of other part of right foot with muscle involvement without evidence of necrosis; L97.321 Non-pressure chronic ulcer of left ankle limited to breakdown of skin; L97.821 Non-pressure chronic ulcer of other part of left lower leg limited to breakdown of skin; L97.811 Non-pressure chronic ulcer of other part of right lower leg limited to breakdown of skin; I12.9 Hypertensive chronic kidney disease with stage 1 through stage 4 chronic kidney disease, or unspecified chronic kidney disease; N18.9 Chronic kidney disease, unspecified; I48.2 Chronic atrial fibrillation; E66.01 Morbid (severe) obesity due to excess calories; Z68.28 Body mass index [BMI] 28.0-28.9, adult | CPT/HCPCS: 11043; 97597; 97598 ==

== ENCOUNTER 2018-12-02 14:19 | Inpatient (IN) | payer BC ==
[~2018-12-02] VITALS: Ht 177.8 cm; Wt 85.9 kg
[~2018-12-02 14:19] MED LIST changes: -MAGNESIUM COMPLEX; +MAGNESIUM COMPLEX PO; -RED YEAST RICE; +RED YEAST RICE PO
--- NOTE | 2018-12-02 14:20 | NUR ---
PT BIB [facility] FOR AMS FOUND BY FATHER TODAY. PT A+O X1. PT DENEIS ANY PAIN. PT WAS HERE IN [place] FOR CELLULITIS OF THE LEG AND HAS BEEN WORKING WITH [facility] FOR CHRONIC WOUNDS TO BOTH LEGS, FEET. PT WAS HYPOTENSIV JAMES SCENE AT 90/40. BS WAS 106. PT IN A-FIB AT A RATE OF 130S TO 150S.
[2018-12-02] MEDS ORDERED: SODIUM CHLORIDE 0.9% 1,000ML IVBOLUS ONE ×2 (14:30→16:00)
[2018-12-02] MEDS ORDERED: SODIUM CHLORIDE FLUSH 10ML SYR IVF ONE (14:30)
[2018-12-02] MEDS ORDERED: PLEASE ENTER HEIGHT AND WEIGHT MC SCH (15:00)
[2018-12-02] MEDS ORDERED: PIPERACILLIN/TAZO/PMX 3.375GM 50 ML IV ONE (15:00)
[2018-12-02] MEDS ORDERED: DILTIAZEM 5 MG/ML, 5ML IVPush STA ×2 (15:04→16:39)
--- NOTE | 2018-12-02 15:25 | NUR ---
PT TO CT.
[2018-12-02 15:31] LABS: ALBUMIN 2.9 g/dL (3.4-5.0); ANION GAP 13 mmol/L (5-15); CALCIUM 7.9 mg/dL (8.5-10.1); CHLORIDE 97 mmol/L (98-107)
[2018-12-02] MEDS ORDERED: DILTIAZEM 5 MG/ML, 5ML ONE ×2 (15:41→16:40)
[2018-12-02 15:43] LABS: MD YES; MEAN CORPUSCULAR HEMOGLOBIN 23.2 pg (27.0-34.8); MEAN CORPUSCULAR HGB CONC 30.1 g/dL (32.4-35.8); MEAN CORPUSCULAR VOLUME 77.2 fL (80-100); MEAN PLATELET VOLUME 9.5 fL (7.4-10.4); PLATELET COUNT 190 x10^3/uL (130-400); RED BLOOD COUNT 6.91 x10^6/uL (3.82-5.3); RED CELL DISTRIBUTION WIDTH 18.7 % (9.6-15.2)
[2018-12-02] MEDS ORDERED: PIPERACILLIN/TAZO/PMX 3.375GM 50 ML ONE (15:43)
[2018-12-02 15:47] LABS: ALANINE AMINOTRANSFERASE 3586 U/L (12-78); ALKALINE PHOSPHATASE 126 U/L (45-117); BILIRUBIN,TOTAL 2.6 mg/dL (0.2-1.0); CREATINE KINASE, TOTAL 265 U/L (26-192); CREATININE 2.85 mg/dL (0.55-1.02); TOTAL PROTEIN 5.7 g/dL (6.4-8.2)
--- NOTE | 2018-12-02 15:50 | NUR ---
PT BACK FROM CT AND MEDICATED PER MD ORDER FOR HR. PT HEAR RATE DROPPED TO THE 80S TO LOW 100S. FATHER AT BEDSIDE. FATHER REPORTS OTHER HX HTN FAR HE KNOWS. FATHER REPORTED HE FOUND PT IN HER LOUNGE CHAIR ALTERED.
[2018-12-02 15:54] LABS: SALICYLATE LEVEL < 1.7 mg/dL (2.8-20.0)
[2018-12-02 15:55] LABS: INTERNATIONAL NORMALIZED RATIO 3.07 (0.93-1.1); PROTHROMBIN TIME 30.9 Seconds (9.6-11.5)
[2018-12-02 16:36] LABS: BAND#(MANUAL) 0.17 x10^3/uL; BANDS%(MANUAL) 1 % (0-7); LYMPHS% (MANUAL) 9 % (22-44); MONOS#(MANUAL) 1.17 x10^3/uL (0.3-2.7); MONOS% (MANUAL) 7 % (2-9); NRBC % (MANUAL) 1 % (0-1); SEG#(MANUAL) 13.86 x10^3/uL (1.8-6.8); SEGS% (MANUAL) 83 % (42-75)
[2018-12-02 16:37] LABS: ANISOCYTOSIS 1+; HYPOCHROMIA 1+; POLYCHROMASIA 1+
[2018-12-02 16:38] LABS: <PLATELET ESTIMATE> ADEQUATE; <PLT MORPHOLOGY> NORMAL PLT MORPH; C-REACTIVE PROTEIN, QUANT 6.9 mg/dL (0.02-0.49); FREE T4 (FREE THYROXINE) 1.43 ng/dL (0.76-1.46)
--- NOTE | 2018-12-02 17:02 | NUR ---
HR ELEVATED AGAIN. DR. MIRYAM SAN.
[2018-12-02] MEDS: DILTIAZEM 125 MG in SODIUM CHLORIDE 0.9% 100 ML IV SCH ×2 (17:19→21:39)
--- NOTE | 2018-12-02 17:20 | NUR ---
CARDIZEM ORDER DISCUSSED WITH DR. GARCIA. PT HR 106-130'S WITH BP 105/74. ORDER REC'D TO HOLD CARDIZEM 40MG BOLUS AND START GTT AT 10MG/HR.
[2018-12-02 18:06] LABS: CULTURE INDICATED? YES; MICROSCOPIC INDICATED
[2018-12-02 18:23] LABS: AMPHETAMINE SCREEN, URINE Negative (Negative); BARBITURATE SCREEN, URINE Negative (Negative); BENZODIAZEPINE SCREEN, URINE Negative (Negative); CANNABINOID SCREEN, URINE Negative (Negative); COCAINE SCREEN, URINE Negative (Negative); METHADONE SCREEN, URINE Negative (Negative); OPIATE SCREEN, URINE Negative (Negative)
--- NOTE | 2018-12-02 18:43 | NUR ---
LAB AT BEDSIDE FOR REPEAT LACTATE. ADMIT ORDERS ARE ENTERED. WAITING FOR ROOM ASSIGNMENT.
[2018-12-02 20:00] VITALS: BP 103/74
[2018-12-02] MEDS ORDERED: ONDANSETRON ODT 4 MG PO PRN (20:30)
[2018-12-02] MEDS ORDERED: hydrALAzine 20 MG/ML, 1ML IVPush PRN (20:30)
[2018-12-02] MEDS ORDERED: POLYETHYLENE GLYCOL 17 GM PACKET PO PRN (20:30)
[2018-12-02] MEDS ORDERED: ONDANSETRON 2MG/ML, 2ML IVPush PRN (20:30)
[2018-12-02] MEDS ORDERED: DOCUSATE 100 MG CAPSULE PO PRN (20:30)
[2018-12-02] MEDS ORDERED: BISACODYL 10 MG SUPP PR PRN (20:30)
[2018-12-02] MEDS ORDERED: OXYcodone IR 5MG TABLET PO PRN (20:30)
[2018-12-02] MEDS ORDERED: PROMETHAZINE 25 MG/ML, 1ML IM PRN (20:30)
[2018-12-02] MEDS ORDERED: morphine SULFATE 10 MG/ML, 1ML IVPush PRN (20:30)
[2018-12-02] MEDS ORDERED: DILTIAZEM 125 MG in SODIUM CHLORIDE 0.9% 100 ML IV SCH (20:30)
[2018-12-02 20:49] LABS: HEMOGLOBIN A1C 5.9 % (4.2-6.3)
[2018-12-02 22:05] VITALS: BP 110/70
[2018-12-02] MEDS: SODIUM CHLORIDE 0.9% 1,000 ML IV SCH (22:09)
[2018-12-02] MEDS: PIPERACILLIN/TAZO/PMX 2.25GM 50 ML IV SCH (22:10)
[2018-12-02] MEDS: DAPTOMYCIN 500 MG in SODIUM CHLORIDE 0.9% 100 ML IV SCH (23:14)
[2018-12-03 01:45] VITALS: BP 107/75
[2018-12-03] MEDS: PIPERACILLIN/TAZO/PMX 2.25GM 50 ML IV SCH ×4 (04:08→23:18)
[2018-12-03 05:26] LABS: CHLORIDE 99 mmol/L (98-107)
[2018-12-03 05:27] LABS: MEAN CORPUSCULAR HEMOGLOBIN 23.5 pg (27.0-34.8); MEAN CORPUSCULAR HGB CONC 30.5 g/dL (32.4-35.8); MEAN CORPUSCULAR VOLUME 77.1 fL (80-100); MEAN PLATELET VOLUME 9.8 fL (7.4-10.4); PLATELET COUNT 196 x10^3/uL (130-400); RED CELL DISTRIBUTION WIDTH 18.5 % (9.6-15.2)
[2018-12-03 05:47] LABS: ALANINE AMINOTRANSFERASE 3014 U/L (12-78); ALBUMIN 2.9 g/dL (3.4-5.0); ALKALINE PHOSPHATASE 119 U/L (45-117); ANION GAP 10 mmol/L (5-15); BILIRUBIN,TOTAL 2.4 mg/dL (0.2-1.0); CALCIUM 7.7 mg/dL (8.5-10.1); CHOL/HDL RATIO 6.9; CHOLESTEROL, TOTAL 118 mg/dL (140-239); CREATININE 2.81 mg/dL (0.55-1.02); HDL CHOL % 14 % (28-40); HDL CHOLESTEROL (DIRECT) 17 mg/dL (40-60); LDL CHOLESTEROL,CALCULATED 79 mg/dL (54-169); LDL/HDL RATIO 4.6 (0.5-3.0); TOTAL PROTEIN 5.5 g/dL (6.4-8.2); TRIGLYCERIDES 111 mg/dL (50-200); VLDL CHOLESTEROL 22 mg/dL (0-25)
[2018-12-03 06:03] LABS: MD YES
[2018-12-03 06:05] LABS: <PLATELET ESTIMATE> ADEQUATE; <PLT MORPHOLOGY> NORMAL PLT MORPH; ANISOCYTOSIS 1+; HYPOCHROMIA 1+; LYMPH#(MANUAL) 1.61 x10^3/uL (1-3.4); LYMPHS% (MANUAL) 7 % (22-44); MONOS#(MANUAL) 1.38 x10^3/uL (0.3-2.7); MONOS% (MANUAL) 6 % (2-9); NRBC % (MANUAL) 1 % (0-1); POLYCHROMASIA 1+; SEG#(MANUAL) 20.01 x10^3/uL (1.8-6.8); SEGS% (MANUAL) 87 % (42-75); TARGET CELLS 1+
[2018-12-03 06:06] LABS: PMNS WITH VACUOLES 1+
[2018-12-03 06:07] LABS: MICROCYTOSIS 1+
[2018-12-03 06:38] VITALS: BP 117/69
[2018-12-03] MEDS: SODIUM CHLORIDE 0.9% 1,000 ML IV SCH (06:39)
[2018-12-03] MEDS: DILTIAZEM 125 MG in SODIUM CHLORIDE 0.9% 100 ML IV SCH (06:40)
[2018-12-03 08:50] VITALS: BP 127/81
--- NOTE | 2018-12-03 10:19 | NUR ---
REC: NPO except sips/chips and floated meds with 1:1 supervision/assistance Addendum: 12/03/18 at 1019 by Stefany DUKE Amended: Links added.
[2018-12-03 13:05] VITALS: BP 103/68
[2018-12-03] MEDS ORDERED: SODIUM CHLORIDE 0.9% 1,000ML IVBOLUS ONE ×2 (15:00→18:00)
[2018-12-03 17:17] LABS: ALBUMIN 2.8 g/dL (3.4-5.0); ANION GAP 10 mmol/L (5-15); CALCIUM 7.6 mg/dL (8.5-10.1); CHLORIDE 101 mmol/L (98-107)
[2018-12-03 18:46] VITALS: BP 133/73
[2018-12-04 00:08] VITALS: BP 122/90
[2018-12-04] MEDS: SODIUM CHLORIDE 0.9% 1,000 ML IV SCH ×4 (00:45→17:17)
[2018-12-04] MEDS: DAPTOMYCIN 500 MG in SODIUM CHLORIDE 0.9% 100 ML IV SCH (00:46)
[2018-12-04] MEDS: PIPERACILLIN/TAZO/PMX 2.25GM 50 ML IV SCH ×4 (06:08→23:42)
[2018-12-04] MEDS: DILTIAZEM 125 MG in SODIUM CHLORIDE 0.9% 100 ML IV SCH (06:15)
[2018-12-04 08:40] LABS: INTERNATIONAL NORMALIZED RATIO 1.78 (0.93-1.1); PROTHROMBIN TIME 18.3 Seconds (9.6-11.5)
[2018-12-04 08:41] LABS: ALBUMIN 2.7 g/dL (3.4-5.0); ANION GAP 9 mmol/L (5-15); CALCIUM 7.5 mg/dL (8.5-10.1); CHLORIDE 103 mmol/L (98-107)
[2018-12-04 08:43] VITALS: BP 124/87
[2018-12-04 08:49] LABS: ALANINE AMINOTRANSFERASE 2048 U/L (12-78); ALKALINE PHOSPHATASE 129 U/L (45-117); CREATININE 2.63 mg/dL (0.55-1.02); TOTAL PROTEIN 5.4 g/dL (6.4-8.2)
[2018-12-04 09:25] LABS: MD YES; MEAN CORPUSCULAR HEMOGLOBIN 22.8 pg (27.0-34.8); MEAN CORPUSCULAR VOLUME 77.5 fL (80-100); MEAN PLATELET VOLUME 9.5 fL (7.4-10.4); PLATELET COUNT 140 x10^3/uL (130-400); RED BLOOD COUNT 5.71 x10^6/uL (3.82-5.3); RED CELL DISTRIBUTION WIDTH 18.5 % (9.6-15.2)
[2018-12-04 09:26] LABS: MEAN CORPUSCULAR HGB CONC 29.5 g/dL (32.4-35.8)
[2018-12-04 09:28] LABS: BAND#(MANUAL) 0.71 x10^3/uL; BANDS%(MANUAL) 4 % (0-7); LYMPHS% (MANUAL) 9 % (22-44); MONOS#(MANUAL) 1.42 x10^3/uL (0.3-2.7); MONOS% (MANUAL) 8 % (2-9); NRBC % (MANUAL) 4 % (0-1); SEG#(MANUAL) 14.06 x10^3/uL (1.8-6.8); SEGS% (MANUAL) 79 % (42-75)
[2018-12-04 09:32] LABS: ANISOCYTOSIS 1+; MICROCYTOSIS 1+
[2018-12-04 09:33] LABS: OVALOCYTES 1+; POLYCHROMASIA 1+; TARGET CELLS 1+
[2018-12-04 09:36] LABS: <PLATELET ESTIMATE> ADEQUATE
[2018-12-04 09:37] LABS: <PLT MORPHOLOGY> NORMAL PLT MORPH
--- NOTE | 2018-12-04 12:19 | NUR ---
REC: NPO with sips/chips; NGT if deems neccessary Addendum: 12/04/18 at 1219 by Setfany DUKE Amended: Links added.
--- NOTE | 2018-12-04 12:20 | NUR ---
[place] sheet with swallowing precautions in room Addendum: 12/04/18 at 1220 by Stefany DUKE Amended: Links added.
[2018-12-04 18:43] VITALS: BP 127/76
[2018-12-04 22:00] VITALS: BP 139/84
[2018-12-04 22:17] VITALS: BP 135/85
[2018-12-04 23:34] VITALS: BP 127/76
[2018-12-05] VITALS (9 sets, daily range): BP systolic 113–144; BP diastolic 75–84
[2018-12-05] MEDS: DAPTOMYCIN 500 MG in SODIUM CHLORIDE 0.9% 100 ML IV SCH (02:12)
[2018-12-05] MEDS: SODIUM CHLORIDE 0.9% 1,000 ML IV SCH (03:17)
[2018-12-05] MEDS: PIPERACILLIN/TAZO/PMX 2.25GM 50 ML IV SCH ×4 (05:27→23:59)
[2018-12-05] MEDS: DILTIAZEM 125 MG in SODIUM CHLORIDE 0.9% 100 ML IV SCH (06:28)
[2018-12-05] MEDS ORDERED: PROPOFOL 10 MG/ML, 100ML IV ONE (07:38)
[2018-12-05] MEDS ORDERED: ETOMIDATE 20 MG/10 ML ONE (07:38)
[2018-12-05] MEDS ORDERED: ROCURONIUM 10 MG/ML,10ML ONE (07:38)
[2018-12-05 08:38] LABS: MEAN CORPUSCULAR HEMOGLOBIN 22.9 pg (27.0-34.8); MEAN CORPUSCULAR VOLUME 77.5 fL (80-100); MEAN PLATELET VOLUME 9.9 fL (7.4-10.4); PLATELET COUNT 113 x10^3/uL (130-400); RED CELL DISTRIBUTION WIDTH 18.8 % (9.6-15.2)
[2018-12-05 08:39] LABS: ANION GAP 5 mmol/L (5-15); CALCIUM 8.1 mg/dL (8.5-10.1); CHLORIDE 105 mmol/L (98-107); INTERNATIONAL NORMALIZED RATIO 1.38 (0.93-1.1); PROTHROMBIN TIME 14.3 Seconds (9.6-11.5)
[2018-12-05 08:50] LABS: ALANINE AMINOTRANSFERASE 1564 U/L (12-78); ALKALINE PHOSPHATASE 128 U/L (45-117); BILIRUBIN,TOTAL 3.8 mg/dL (0.2-1.0); CREATININE 2.04 mg/dL (0.55-1.02); TOTAL PROTEIN 5.9 g/dL (6.4-8.2)
[2018-12-05 08:53] LABS: MD YES; MEAN CORPUSCULAR HGB CONC 29.6 g/dL (32.4-35.8)
[2018-12-05 08:54] LABS: BAND#(MANUAL) 0.16 x10^3/uL; BANDS%(MANUAL) 1 % (0-7); LYMPH#(MANUAL) 0.31 x10^3/uL (1-3.4); LYMPHS% (MANUAL) 2 % (22-44); MONOS#(MANUAL) 1.09 x10^3/uL (0.3-2.7); MONOS% (MANUAL) 7 % (2-9); NRBC % (MANUAL) 3 % (0-1); SEG#(MANUAL) 14.04 x10^3/uL (1.8-6.8); SEGS% (MANUAL) 90 % (42-75)
[2018-12-05 08:55] LABS: ANISOCYTOSIS 1+; HYPOCHROMIA 1+; MICROCYTOSIS 1+; POLYCHROMASIA 1+
[2018-12-05 08:56] LABS: <PLATELET ESTIMATE> DECREASED; OVALOCYTES 1+; TARGET CELLS 1+
[2018-12-05 08:57] LABS: <PLT MORPHOLOGY> NORMAL PLT MORPH
[2018-12-05] MEDS ORDERED: LIDOCAINE-MPF 1%, 5ML ONE ×2 (10:48)
[2018-12-05] MEDS ORDERED: FENTANYL PF 100 MCG/2ML ONE ×2 (11:19→17:05)
[2018-12-05] MEDS ORDERED: FLUMAZENIL 0.1 MG/1 ML, 5ML ONE (11:19)
[2018-12-05] MEDS ORDERED: NALOXONE 1 MG/ML, 2ML ONE (11:19)
[2018-12-05] MEDS ORDERED: MIDAZOLAM 1 MG/ML, 2ML ONE (11:19)
[2018-12-05] MEDS ORDERED: VISIPAQUE 320MG/ML, 50ML BOTTLE ONE (12:42)
[2018-12-05] MEDS ORDERED: FUROSEMIDE 20 MG/2 ML ONE (13:27)
[2018-12-05] MEDS ORDERED: FUROSEMIDE 20 MG/2 ML IV ONE (13:30)
[2018-12-05] MEDS ORDERED: ALBUTEROL/IPRATROPIUM 2.5MG/0.5MG, 3 ML ONE (17:21)
[2018-12-05] MEDS ORDERED: FENTANYL PF 100 MCG/2ML IVPush ONE (17:30)
[2018-12-05] MEDS ORDERED: NOREPINEPHRINE 4 MG in SODIUM CHLORIDE 0.9% 246 ML IV PRN (17:46)
[2018-12-05] MEDS ORDERED: SODIUM CHLORIDE 0.9% 1,000 ML IV SCH (18:00)
[2018-12-05] MEDS ORDERED: DEXTROSE 4 GM TAB.CHEW PO PRN (18:00)
[2018-12-05] MEDS ORDERED: BISACODYL 10 MG SUPP PR PRN (18:00)
[2018-12-05] MEDS ORDERED: PHARMACY MAY ADJ FOR RENAL FX MC SCH (18:00)
[2018-12-05] MEDS ORDERED: SENNA 176 MG/5 ML ORAL SOL NG PRN (18:00)
[2018-12-05] MEDS ORDERED: GLUCAGON 1 MG IM PRN (18:00)
[2018-12-05] MEDS ORDERED: LIDOCAINE-MPF 1%, 2ML ENDO PRN (18:00)
[2018-12-05] MEDS ORDERED: SENNA/DOCUSATE TABLET NG PRN (18:00)
[2018-12-05] MEDS ORDERED: LACTULOSE 20 GM/30 ML UDC NG PRN (18:00)
[2018-12-05] MEDS ORDERED: FENTANYL PF 100 MCG/2ML IVPush PRN (18:00)
[2018-12-05] MEDS ORDERED: DEXTROSE 50%, 50ML SYRINGE IVPush PRN (18:00)
[2018-12-05 18:27] LABS: MEAN CORPUSCULAR HEMOGLOBIN 23.6 pg (27.0-34.8); MEAN CORPUSCULAR HGB CONC 30.7 g/dL (32.4-35.8); MEAN CORPUSCULAR VOLUME 76.8 fL (80-100); MEAN PLATELET VOLUME 10.4 fL (7.4-10.4); PLATELET COUNT 106 x10^3/uL (130-400); RED BLOOD COUNT 5.48 x10^6/uL (3.82-5.3); RED CELL DISTRIBUTION WIDTH 18.5 % (9.6-15.2)
[2018-12-05 18:34] LABS: TROPONIN I 0.326 ng/mL (0.000-0.045)
[2018-12-05 18:35] LABS: ANION GAP 7 mmol/L (5-15); CALCIUM 7.6 mg/dL (8.5-10.1); CHLORIDE 106 mmol/L (98-107); CREATININE 2.08 mg/dL (0.55-1.02); TRIGLYCERIDES 90 mg/dL (50-200)
[2018-12-05 19:06] LABS: INTERNATIONAL NORMALIZED RATIO 1.37 (0.93-1.1); PROTHROMBIN TIME 14.2 Seconds (9.6-11.5)
[2018-12-05] MEDS: ALBUTEROL/IPRATROPIUM 2.5MG/0.5MG, 3 ML INLINE SCH ×2 (19:26→22:22)
[2018-12-05] MEDS: SODIUM CHLORIDE FLUSH 10ML SYR IVF SCH (20:48)
[2018-12-05] MEDS: FAMOTIDINE 20 MG/2 ML IV SCH (20:48)
[2018-12-05] MEDS: INSULIN LISPRO 100 UNITS/ML, PEN SQ-INSULIN SCH (20:48)
[2018-12-05] MEDS: PROPOFOL 100 ML IV PRN (23:59)
[2018-12-06] MEDS: DAPTOMYCIN 500 MG in SODIUM CHLORIDE 0.9% 100 ML IV SCH (01:48)
[2018-12-06] MEDS: ALBUTEROL/IPRATROPIUM 2.5MG/0.5MG, 3 ML INLINE SCH ×6 (02:38→22:00)
[2018-12-06] MEDS: PIPERACILLIN/TAZO/PMX 2.25GM 50 ML IV SCH ×2 (04:52→11:32)
[2018-12-06] MEDS: PROPOFOL 100 ML IV PRN ×3 (04:52→20:42)
[2018-12-06 06:43] LABS: MEAN CORPUSCULAR HEMOGLOBIN 23.6 pg (27.0-34.8); MEAN CORPUSCULAR HGB CONC 30.9 g/dL (32.4-35.8); MEAN CORPUSCULAR VOLUME 76.4 fL (80-100); RED BLOOD COUNT 5.01 x10^6/uL (3.82-5.3); RED CELL DISTRIBUTION WIDTH 18.5 % (9.6-15.2)
[2018-12-06 06:57] LABS: CHLORIDE 107 mmol/L (98-107)
[2018-12-06 07:08] LABS: ALANINE AMINOTRANSFERASE 965 U/L (12-78); ALBUMIN 2.1 g/dL (3.4-5.0); ALKALINE PHOSPHATASE 97 U/L (45-117); ANION GAP 8 mmol/L (5-15); BILIRUBIN,TOTAL 4.6 mg/dL (0.2-1.0); CALCIUM 7.7 mg/dL (8.5-10.1); CREATININE 1.85 mg/dL (0.55-1.02); TOTAL PROTEIN 4.7 g/dL (6.4-8.2)
[2018-12-06 07:15] LABS: MD YES
[2018-12-06] MEDS: INSULIN LISPRO 100 UNITS/ML, PEN SQ-INSULIN SCH (07:15)
[2018-12-06 07:16] LABS: BASOPHILS % (AUTO) 0 % (0-1); EOSINOPHILS # (AUTO) 0.09 x10^3/uL (0-0.4); EOSINOPHILS % (AUTO) 1 % (1-7); LYMPHOCYTES # (AUTO) 0.82 x10^3/uL (1-3.4); LYMPHOCYTES % (AUTO) 6 % (22-44); MEAN PLATELET VOLUME 10.1 fL (7.4-10.4); MONOCYTES # (AUTO) 1.27 x10^3/uL (0.2-0.8); MONOCYTES % (AUTO) 9 % (2-9); NEUTROPHILS # (AUTO) 12.57 x10^3/uL (1.8-6.8); NEUTROPHILS % (AUTO) 85 % (42-75); PLATELET COUNT 98 x10^3/uL (130-400)
[2018-12-06 07:17] LABS: EOS% (MANUAL) 2 % (1-7); LYMPH#(MANUAL) 0.89 x10^3/uL (1-3.4); LYMPHS% (MANUAL) 6 % (22-44); MONOS#(MANUAL) 1.63 x10^3/uL (0.3-2.7); MONOS% (MANUAL) 11 % (2-9); NRBC % (MANUAL) 4 % (0-1); SEG#(MANUAL) 11.99 x10^3/uL (1.8-6.8); SEGS% (MANUAL) 81 % (42-75)
[2018-12-06 07:18] LABS: <PLATELET ESTIMATE> DECREASED; ANISOCYTOSIS 1+; HYPOCHROMIA 1+; LARGE PLATELETS 1+; MICROCYTOSIS 1+; OVALOCYTES 1+; POLYCHROMASIA 1+; TARGET CELLS 1+
[2018-12-06] MEDS ORDERED: POTASSIUM CHLORIDE 10% 40 MEQ/30 ML UDC ONE (07:30)
[2018-12-06] MEDS: LINEZOLID PMX 600MG/300ML 300 ML IV SCH ×2 (07:32→20:35)
[2018-12-06] MEDS: FAMOTIDINE 20 MG/2 ML IV SCH ×2 (07:32→20:35)
[2018-12-06] MEDS: FUROSEMIDE 20 MG/2 ML IV SCH ×2 (07:33→16:36)
[2018-12-06] MEDS: SODIUM CHLORIDE FLUSH 10ML SYR IVF SCH ×2 (07:33→20:35)
[2018-12-06] MEDS: POTASSIUM CHLORIDE 10% 40 MEQ/30 ML UDC PO SCH ×2 (07:35→20:35)
[2018-12-06] MEDS ORDERED: HEPARIN 5,000 UNITS/ML, 1ML SQ SCH (08:30)
--- NOTE | 2018-12-06 09:27 | NUR ---
TF GOAL: w/ propofol: VITAL HIGH PROTEIN @ 60ML/HR off propofol: VITAL HIGH PROTEIN @ 65ML/HR
[2018-12-06] MEDS ORDERED: FERROUS SULFATE 325 MG TABLET PO SCH (09:30)
[2018-12-06] MEDS: FERROUS SULFATE 220 MG/5 ML ORAL SOL PO SCH (09:57)
[2018-12-06] MEDS ORDERED: FENTANYL PF 100 MCG/2ML ONE (15:48)
[2018-12-06] MEDS: FENTANYL PF 100 MCG/2ML IVPush PRN (15:58)
[2018-12-06] MEDS: PIPERACILLIN/TAZO/PMX 3.375GM 50 ML IV SCH ×2 (17:15→23:34)
[2018-12-06] MEDS: METOPROLOL TARTRATE 50 MG TABLET PO SCH (17:20)
[2018-12-06 23:54] LABS: MEAN CORPUSCULAR HEMOGLOBIN 23.4 pg (27.0-34.8); MEAN CORPUSCULAR VOLUME 75.3 fL (80-100); MEAN PLATELET VOLUME 9.9 fL (7.4-10.4); PLATELET COUNT 124 x10^3/uL (130-400); RED BLOOD COUNT 5.18 x10^6/uL (3.82-5.3); RED CELL DISTRIBUTION WIDTH 19.8 % (9.6-15.2)
[2018-12-07] MEDS: ALBUTEROL/IPRATROPIUM 2.5MG/0.5MG, 3 ML INLINE SCH ×6 (02:00→22:29)
[2018-12-07] MEDS: FENTANYL PF 100 MCG/2ML IVPush PRN (02:12)
[2018-12-07 05:09] LABS: MEAN CORPUSCULAR HEMOGLOBIN 23.5 pg (27.0-34.8); MEAN CORPUSCULAR VOLUME 75.8 fL (80-100); MEAN PLATELET VOLUME 9.9 fL (7.4-10.4); PLATELET COUNT 128 x10^3/uL (130-400); RED BLOOD COUNT 5.08 x10^6/uL (3.82-5.3)
[2018-12-07 05:12] LABS: INTERNATIONAL NORMALIZED RATIO 1.37 (0.93-1.1); PROTHROMBIN TIME 14.2 Seconds (9.6-11.5)
[2018-12-07 05:17] LABS: ALBUMIN 2.1 g/dL (3.4-5.0); ANION GAP 4 mmol/L (5-15); CALCIUM 7.7 mg/dL (8.5-10.1); CHLORIDE 109 mmol/L (98-107)
[2018-12-07 05:20] LABS: ALANINE AMINOTRANSFERASE 755 U/L (12-78); ALKALINE PHOSPHATASE 99 U/L (45-117); CREATININE 1.65 mg/dL (0.55-1.02); TOTAL PROTEIN 5.2 g/dL (6.4-8.2)
[2018-12-07] MEDS: PIPERACILLIN/TAZO/PMX 3.375GM 50 ML IV SCH ×4 (05:27→23:17)
[2018-12-07] MEDS: LEVOTHYROXINE 25 MCG TABLET PO SCH (05:28)
[2018-12-07] MEDS: METOPROLOL TARTRATE 50 MG TABLET PO SCH ×2 (05:28→19:39)
[2018-12-07 07:00] LABS: MD YES
[2018-12-07 07:07] LABS: BASOS#(MANUAL) 0.15 x10^3/uL (0-0.1); BASOS% (MANUAL) 1 % (0-1); EOS#(MANUAL) 0.15 x10^3/uL (0.0-0.4); EOS% (MANUAL) 1 % (1-7); LYMPHS% (MANUAL) 4 % (22-44); MONOS% (MANUAL) 10 % (2-9); NRBC % (MANUAL) 7 % (0-1); SEGS% (MANUAL) 84 % (42-75)
[2018-12-07 07:10] LABS: ANISOCYTOSIS 1+; MICROCYTOSIS 1+; TARGET CELLS 1+
[2018-12-07 07:11] LABS: HYPOCHROMIA 1+; POLYCHROMASIA 1+
[2018-12-07 07:13] LABS: LARGE PLATELETS 1+
[2018-12-07 07:14] LABS: <PLATELET ESTIMATE> ADEQUATE
[2018-12-07] MEDS: PROPOFOL 100 ML IV PRN ×2 (07:47→15:35)
[2018-12-07] MEDS: FUROSEMIDE 20 MG/2 ML IV SCH ×2 (07:48→15:03)
[2018-12-07] MEDS: FAMOTIDINE 20 MG/2 ML IV SCH (07:48)
[2018-12-07] MEDS: FERROUS SULFATE 220 MG/5 ML ORAL SOL PO SCH (07:48)
[2018-12-07] MEDS: LINEZOLID PMX 600MG/300ML 300 ML IV SCH ×2 (07:48→19:39)
[2018-12-07] MEDS: SODIUM CHLORIDE FLUSH 10ML SYR IVF SCH ×2 (07:49→19:39)
[2018-12-07] MEDS: ALBUMIN HUMAN 25% 100 ML IV SCH ×3 (09:02→23:14)
[2018-12-07 10:35] LABS: HIT RESULT NEGATIVE (NEGATIVE)
[2018-12-07] MEDS: POTASSIUM CHLORIDE 20 MEQ PACKET NG SCH (17:20)
[2018-12-08] MEDS: PROPOFOL 100 ML IV PRN ×2 (00:41→21:11)
[2018-12-08] MEDS: FUROSEMIDE 20 MG/2 ML IV SCH ×3 (00:41→17:38)
[2018-12-08] MEDS: ALBUTEROL/IPRATROPIUM 2.5MG/0.5MG, 3 ML INLINE SCH ×6 (02:06→22:00)
[2018-12-08] MEDS: FENTANYL PF 100 MCG/2ML IVPush PRN (02:22)
[2018-12-08 05:04] LABS: ALBUMIN 2.7 g/dL (3.4-5.0); ANION GAP 4 mmol/L (5-15); CHLORIDE 107 mmol/L (98-107)
[2018-12-08 05:09] LABS: ALANINE AMINOTRANSFERASE 474 U/L (12-78); ALKALINE PHOSPHATASE 78 U/L (45-117); BILIRUBIN, DIRECT 2.8 mg/dL (0.1-0.2); BILIRUBIN,TOTAL 3.8 mg/dL (0.2-1.0); CREATININE 1.47 mg/dL (0.55-1.02); TOTAL PROTEIN 5.4 g/dL (6.4-8.2); TRIGLYCERIDES 59 mg/dL (50-200)
[2018-12-08] MEDS: PIPERACILLIN/TAZO/PMX 3.375GM 50 ML IV SCH ×2 (05:41→12:26)
[2018-12-08] MEDS: LEVOTHYROXINE 25 MCG TABLET PO SCH (05:41)
[2018-12-08] MEDS: METOPROLOL TARTRATE 50 MG TABLET PO SCH ×2 (05:41→16:45)
[2018-12-08 05:56] LABS: MD YES; MEAN CORPUSCULAR HEMOGLOBIN 22.7 pg (27.0-34.8); MEAN CORPUSCULAR HGB CONC 30.2 g/dL (32.4-35.8); MEAN CORPUSCULAR VOLUME 75.1 fL (80-100); PLATELET COUNT 136 x10^3/uL (130-400); RED BLOOD COUNT 4.71 x10^6/uL (3.82-5.3); RED CELL DISTRIBUTION WIDTH 19.1 % (9.6-15.2)
[2018-12-08 05:58] LABS: BAND#(MANUAL) 0.14 x10^3/uL; BANDS%(MANUAL) 1 % (0-7); EOS#(MANUAL) 0.14 x10^3/uL (0.0-0.4); EOS% (MANUAL) 1 % (1-7); LYMPH#(MANUAL) 0.14 x10^3/uL (1-3.4); LYMPHS% (MANUAL) 1 % (22-44); MONOS#(MANUAL) 1.55 x10^3/uL (0.3-2.7); MONOS% (MANUAL) 11 % (2-9); NRBC % (MANUAL) 5 % (0-1); SEG#(MANUAL) 12.13 x10^3/uL (1.8-6.8); SEGS% (MANUAL) 86 % (42-75)
[2018-12-08 05:59] LABS: ANISOCYTOSIS 1+; HYPOCHROMIA 1+; MICROCYTOSIS 1+; POLYCHROMASIA 1+; TARGET CELLS 1+
[2018-12-08 06:00] LABS: <PLATELET ESTIMATE> ADEQUATE; LARGE PLATELETS 1+
[2018-12-08] MEDS: POTASSIUM CHLORIDE 20 MEQ PACKET NG SCH ×2 (08:26→16:45)
[2018-12-08] MEDS: ALBUMIN HUMAN 25% 100 ML IV SCH ×2 (08:26→16:44)
[2018-12-08] MEDS: FAMOTIDINE 20 MG/2 ML IV SCH (08:26)
[2018-12-08] MEDS: SODIUM CHLORIDE FLUSH 10ML SYR IVF SCH ×2 (08:27→21:09)
[2018-12-08] MEDS: HEPARIN 5,000 UNITS/ML, 1ML SQ SCH ×2 (08:27→16:45)
[2018-12-08] MEDS: FERROUS SULFATE 220 MG/5 ML ORAL SOL PO SCH (08:27)
[2018-12-08] MEDS ORDERED: MAGNESIUM SULFATE PMX 2GM/50ML 50 ML IV ONE (08:30)
[2018-12-08] MEDS: PIPERACILLIN/TAZO/PMX 4.5GM 100 ML IV SCH ×2 (16:44→22:53)
[2018-12-09] MEDS: ALBUMIN HUMAN 25% 100 ML IV SCH ×3 (00:45→16:53)
[2018-12-09] MEDS: HEPARIN 5,000 UNITS/ML, 1ML SQ SCH ×3 (00:46→16:53)
[2018-12-09] MEDS: FUROSEMIDE 20 MG/2 ML IV SCH ×3 (01:44→17:36)
[2018-12-09] MEDS: ALBUTEROL/IPRATROPIUM 2.5MG/0.5MG, 3 ML INLINE SCH ×6 (02:00→22:12)
[2018-12-09 03:05] LABS: MEAN CORPUSCULAR HEMOGLOBIN 23.3 pg (27.0-34.8); MEAN CORPUSCULAR HGB CONC 30.7 g/dL (32.4-35.8); MEAN CORPUSCULAR VOLUME 75.7 fL (80-100); MEAN PLATELET VOLUME 9.7 fL (7.4-10.4); PLATELET COUNT 165 x10^3/uL (130-400); RED BLOOD COUNT 4.68 x10^6/uL (3.82-5.3); RED CELL DISTRIBUTION WIDTH 19.8 % (9.6-15.2)
[2018-12-09 03:11] LABS: INTERNATIONAL NORMALIZED RATIO 1.22 (0.93-1.1); PROTHROMBIN TIME 12.7 Seconds (9.6-11.5)
[2018-12-09 03:12] LABS: ANION GAP 8 mmol/L (5-15); CALCIUM 8.4 mg/dL (8.5-10.1); CHLORIDE 107 mmol/L (98-107); CREATININE 1.34 mg/dL (0.55-1.02)
[2018-12-09 03:29] LABS: BASOPHILS # (AUTO) 0.02 x10^3/uL (0-0.1); BASOPHILS % (AUTO) 0 % (0-1); EOSINOPHILS # (AUTO) 0.28 x10^3/uL (0-0.4); EOSINOPHILS % (AUTO) 2 % (1-7); LYMPHOCYTES # (AUTO) 0.83 x10^3/uL (1-3.4); LYMPHOCYTES % (AUTO) 6 % (22-44); MD SCAN; MONOCYTES % (AUTO) 12 % (2-9); NEUTROPHILS % (AUTO) 80 % (42-75)
[2018-12-09] MEDS: PIPERACILLIN/TAZO/PMX 4.5GM 100 ML IV SCH ×4 (04:49→22:52)
[2018-12-09] MEDS: LEVOTHYROXINE 25 MCG TABLET PO SCH (06:05)
[2018-12-09] MEDS: METOPROLOL TARTRATE 50 MG TABLET PO SCH ×2 (06:05→17:35)
[2018-12-09] MEDS: FAMOTIDINE 20 MG/2 ML IV SCH (08:29)
[2018-12-09] MEDS: FERROUS SULFATE 220 MG/5 ML ORAL SOL PO SCH (08:29)
[2018-12-09] MEDS: SODIUM CHLORIDE FLUSH 10ML SYR IVF SCH ×2 (08:30→20:45)
[2018-12-09] MEDS: POTASSIUM CHLORIDE 20 MEQ PACKET NG SCH ×2 (08:30→17:35)
[2018-12-09] MEDS ORDERED: LIDOCAINE-MPF 1%, 5ML ONE (10:36)
[2018-12-09] MEDS: PROPOFOL 100 ML IV PRN (22:32)
[2018-12-10] MEDS: ALBUMIN HUMAN 25% 100 ML IV SCH ×3 (00:23→17:51)
[2018-12-10] MEDS: HEPARIN 5,000 UNITS/ML, 1ML SQ SCH ×3 (00:23→17:50)
[2018-12-10] MEDS: FUROSEMIDE 20 MG/2 ML IV SCH ×3 (01:24→18:33)
[2018-12-10] MEDS: ALBUTEROL/IPRATROPIUM 2.5MG/0.5MG, 3 ML INLINE SCH ×6 (02:37→22:44)
[2018-12-10 04:33] LABS: MEAN CORPUSCULAR HEMOGLOBIN 23.2 pg (27.0-34.8); MEAN CORPUSCULAR HGB CONC 30.8 g/dL (32.4-35.8); MEAN CORPUSCULAR VOLUME 75.3 fL (80-100); MEAN PLATELET VOLUME 9.8 fL (7.4-10.4); PLATELET COUNT 183 x10^3/uL (130-400); RED CELL DISTRIBUTION WIDTH 20.7 % (9.6-15.2)
[2018-12-10 04:42] LABS: INTERNATIONAL NORMALIZED RATIO 1.23 (0.93-1.1); PROTHROMBIN TIME 12.8 Seconds (9.6-11.5)
[2018-12-10] MEDS: PIPERACILLIN/TAZO/PMX 4.5GM 100 ML IV SCH ×4 (04:42→22:31)
[2018-12-10 04:45] LABS: ANION GAP 6 mmol/L (5-15); CALCIUM 8.7 mg/dL (8.5-10.1); CHLORIDE 111 mmol/L (98-107)
[2018-12-10 04:49] LABS: MD YES
[2018-12-10 04:54] LABS: <PLATELET ESTIMATE> ADEQUATE; ANISOCYTOSIS 1+; BAND#(MANUAL) 0.14 x10^3/uL; BANDS%(MANUAL) 1 % (0-7); EOS#(MANUAL) 0.99 x10^3/uL (0.0-0.4); EOS% (MANUAL) 7 % (1-7); HYPOCHROMIA 1+; LARGE PLATELETS 1+; LYMPH#(MANUAL) 1.83 x10^3/uL (1-3.4); LYMPHS% (MANUAL) 13 % (22-44); MICROCYTOSIS 1+; MONOS#(MANUAL) 1.41 x10^3/uL (0.3-2.7); MONOS% (MANUAL) 10 % (2-9); NRBC % (MANUAL) 1 % (0-1); POLYCHROMASIA 1+; SEG#(MANUAL) 9.73 x10^3/uL (1.8-6.8); SEGS% (MANUAL) 69 % (42-75); TARGET CELLS 1+
[2018-12-10] MEDS: LEVOTHYROXINE 25 MCG TABLET PO SCH (05:46)
[2018-12-10] MEDS: METOPROLOL TARTRATE 50 MG TABLET PO SCH ×2 (05:46→17:50)
[2018-12-10] MEDS: FAMOTIDINE 20 MG/2 ML IV SCH (08:59)
[2018-12-10] MEDS: POTASSIUM CHLORIDE 20 MEQ PACKET NG SCH ×2 (09:00→17:50)
[2018-12-10] MEDS: FERROUS SULFATE 220 MG/5 ML ORAL SOL PO SCH (09:00)
[2018-12-10] MEDS: SODIUM CHLORIDE FLUSH 10ML SYR IVF SCH ×2 (09:01→20:44)
--- NOTE | 2018-12-10 10:23 | NUR ---
Updated TF recommendations: Vital AF 1.2 ON/OFF propofol full goal 60 ml/hr
[2018-12-10] MEDS: FLORASTOR 250 MG CAPSULE PO SCH ×2 (10:34→20:56)
[2018-12-10] MEDS: PROPOFOL 100 ML IV PRN ×2 (12:52→21:44)
[2018-12-11] MEDS: ALBUMIN HUMAN 25% 100 ML IV SCH ×4 (00:10→20:57)
[2018-12-11] MEDS: HEPARIN 5,000 UNITS/ML, 1ML SQ SCH ×3 (00:40→16:53)
[2018-12-11] MEDS: FUROSEMIDE 20 MG/2 ML IV SCH ×3 (01:19→20:55)
[2018-12-11] MEDS: ALBUTEROL/IPRATROPIUM 2.5MG/0.5MG, 3 ML INLINE SCH ×6 (02:51→22:08)
[2018-12-11 04:53] LABS: ANION GAP 5 mmol/L (5-15); CALCIUM 8.8 mg/dL (8.5-10.1); CHLORIDE 111 mmol/L (98-107); CREATININE 1.33 mg/dL (0.55-1.02); TRIGLYCERIDES 84 mg/dL (50-200)
[2018-12-11 05:06] LABS: MD YES; MEAN CORPUSCULAR HEMOGLOBIN 22.6 pg (27.0-34.8); MEAN CORPUSCULAR VOLUME 75.8 fL (80-100); MEAN PLATELET VOLUME 9.5 fL (7.4-10.4); PLATELET COUNT 190 x10^3/uL (130-400); RED BLOOD COUNT 4.44 x10^6/uL (3.82-5.3); RED CELL DISTRIBUTION WIDTH 20.9 % (9.6-15.2)
[2018-12-11 05:09] LABS: ANISOCYTOSIS 1+; BAND#(MANUAL) 0.14 x10^3/uL; BANDS%(MANUAL) 1 % (0-7); EOS#(MANUAL) 1.36 x10^3/uL (0.0-0.4); EOS% (MANUAL) 10 % (1-7); HYPOCHROMIA 1+; LYMPH#(MANUAL) 1.77 x10^3/uL (1-3.4); LYMPHS% (MANUAL) 13 % (22-44); MICROCYTOSIS 1+; MONOS% (MANUAL) 11 % (2-9); OVALOCYTES 1+; POLYCHROMASIA 1+; SEG#(MANUAL) 8.84 x10^3/uL (1.8-6.8); SEGS% (MANUAL) 65 % (42-75)
[2018-12-11 05:11] LABS: <PLATELET ESTIMATE> ADEQUATE; LARGE PLATELETS 1+; MEAN CORPUSCULAR HGB CONC 29.9 g/dL (32.4-35.8)
[2018-12-11] MEDS: PIPERACILLIN/TAZO/PMX 4.5GM 100 ML IV SCH ×4 (05:19→23:32)
[2018-12-11] MEDS: METOPROLOL TARTRATE 50 MG TABLET PO SCH ×2 (05:20→16:53)
[2018-12-11] MEDS: LEVOTHYROXINE 25 MCG TABLET PO SCH (05:20)
[2018-12-11] MEDS: DOXYCYCLINE 50 MG/5 ML ORAL SUSP NG SCH ×2 (08:38→20:56)
[2018-12-11] MEDS: FLORASTOR 250 MG CAPSULE PO SCH ×2 (08:41→20:55)
[2018-12-11] MEDS: POTASSIUM CHLORIDE 20 MEQ PACKET NG SCH ×2 (08:43→16:53)
[2018-12-11] MEDS: FERROUS SULFATE 220 MG/5 ML ORAL SOL PO SCH (08:43)
[2018-12-11] MEDS: METOLAZONE 5 MG TABLET NG SCH ×2 (08:43→20:56)
[2018-12-11] MEDS: SODIUM CHLORIDE FLUSH 10ML SYR IVF SCH ×2 (08:44→20:57)
[2018-12-11] MEDS: FAMOTIDINE 20 MG/2 ML IV SCH (08:44)
[2018-12-11] MEDS: CHOLESTYRAMINE LIGHT 4GM PACKET NG SCH ×2 (10:21→22:17)
[2018-12-11] MEDS: FENTANYL PF 100 MCG/2ML IVPush PRN (10:21)
[2018-12-11] MEDS: PROPOFOL 100 ML IV PRN (23:35)
[2018-12-12] MEDS: HEPARIN 5,000 UNITS/ML, 1ML SQ SCH ×3 (01:06→16:53)
[2018-12-12] MEDS: ALBUTEROL/IPRATROPIUM 2.5MG/0.5MG, 3 ML INLINE SCH ×6 (02:15→22:17)
[2018-12-12 04:16] LABS: MEAN CORPUSCULAR HEMOGLOBIN 23.2 pg (27.0-34.8); MEAN CORPUSCULAR HGB CONC 30.8 g/dL (32.4-35.8); MEAN CORPUSCULAR VOLUME 75.6 fL (80-100); MEAN PLATELET VOLUME 9.6 fL (7.4-10.4); PLATELET COUNT 191 x10^3/uL (130-400); RED CELL DISTRIBUTION WIDTH 20.8 % (9.6-15.2)
[2018-12-12 04:17] LABS: MD YES
[2018-12-12 04:26] LABS: ANION GAP 6 mmol/L (5-15); CALCIUM 9.1 mg/dL (8.5-10.1); CHLORIDE 109 mmol/L (98-107); CREATININE 1.35 mg/dL (0.55-1.02)
[2018-12-12 04:28] LABS: ANISOCYTOSIS 1+; EOS#(MANUAL) 0.44 x10^3/uL (0.0-0.4); EOS% (MANUAL) 3 % (1-7); LYMPH#(MANUAL) 1.31 x10^3/uL (1-3.4); LYMPHS% (MANUAL) 9 % (22-44); MONOS#(MANUAL) 1.45 x10^3/uL (0.3-2.7); MONOS% (MANUAL) 10 % (2-9); NRBC % (MANUAL) 1 % (0-1); SEG#(MANUAL) 11.31 x10^3/uL (1.8-6.8); SEGS% (MANUAL) 78 % (42-75)
[2018-12-12 04:29] LABS: <PLATELET ESTIMATE> ADEQUATE; MICROCYTOSIS 1+; OVALOCYTES 1+; POLYCHROMASIA 1+
[2018-12-12 04:30] LABS: LARGE PLATELETS 1+
[2018-12-12] MEDS: PIPERACILLIN/TAZO/PMX 4.5GM 100 ML IV SCH ×3 (05:38→20:32)
[2018-12-12] MEDS: LEVOTHYROXINE 25 MCG TABLET PO SCH (06:43)
[2018-12-12] MEDS: METOPROLOL TARTRATE 50 MG TABLET PO SCH ×2 (06:43→16:53)
[2018-12-12] MEDS: FLORASTOR 250 MG CAPSULE PO SCH ×2 (08:43→21:13)
[2018-12-12] MEDS: METOLAZONE 5 MG TABLET NG SCH ×2 (08:43→22:22)
[2018-12-12] MEDS: FAMOTIDINE 20 MG/2 ML IV SCH (08:44)
[2018-12-12] MEDS: POTASSIUM CHLORIDE 20 MEQ PACKET NG SCH ×2 (08:44→16:53)
[2018-12-12] MEDS: SODIUM CHLORIDE FLUSH 10ML SYR IVF SCH ×2 (08:44→21:13)
[2018-12-12] MEDS: FERROUS SULFATE 220 MG/5 ML ORAL SOL PO SCH (08:50)
[2018-12-12] MEDS: DOXYCYCLINE 50 MG/5 ML ORAL SUSP NG SCH ×2 (08:50→21:14)
[2018-12-12] MEDS ORDERED: AcetaZOLAMIDE INJ 500 MG IVPush SCH (09:00)
[2018-12-12] MEDS: ALBUMIN HUMAN 25% 100 ML IV SCH ×2 (09:09→21:13)
[2018-12-12] MEDS: CHOLESTYRAMINE LIGHT 4GM PACKET NG SCH ×2 (11:46→22:24)
[2018-12-13] MEDS: HEPARIN 5,000 UNITS/ML, 1ML SQ SCH ×3 (00:34→17:59)
[2018-12-13] MEDS: ALBUTEROL/IPRATROPIUM 2.5MG/0.5MG, 3 ML INLINE SCH ×6 (02:23→22:18)
[2018-12-13 04:22] LABS: MEAN CORPUSCULAR HEMOGLOBIN 23.4 pg (27.0-34.8); MEAN CORPUSCULAR HGB CONC 31.1 g/dL (32.4-35.8); MEAN CORPUSCULAR VOLUME 75.2 fL (80-100); MEAN PLATELET VOLUME 9.7 fL (7.4-10.4); PLATELET COUNT 201 x10^3/uL (130-400); RED BLOOD COUNT 4.19 x10^6/uL (3.82-5.3); RED CELL DISTRIBUTION WIDTH 21.2 % (9.6-15.2)
[2018-12-13 04:35] LABS: ANION GAP 6 mmol/L (5-15); CALCIUM 9.3 mg/dL (8.5-10.1); CHLORIDE 109 mmol/L (98-107)
[2018-12-13 04:38] LABS: CREATININE 1.21 mg/dL (0.55-1.02)
[2018-12-13] MEDS: PIPERACILLIN/TAZO/PMX 4.5GM 100 ML IV SCH ×3 (04:48→18:04)
[2018-12-13 05:42] LABS: BASOPHILS # (AUTO) 0.09 x10^3/uL (0-0.1); BASOPHILS % (AUTO) 1 % (0-1); EOSINOPHILS # (AUTO) 0.68 x10^3/uL (0-0.4); EOSINOPHILS % (AUTO) 4 % (1-7); LYMPHOCYTES # (AUTO) 1.26 x10^3/uL (1-3.4); LYMPHOCYTES % (AUTO) 8 % (22-44); MD SCAN; MONOCYTES # (AUTO) 2.05 x10^3/uL (0.2-0.8); MONOCYTES % (AUTO) 13 % (2-9); NEUTROPHILS # (AUTO) 11.84 x10^3/uL (1.8-6.8); NEUTROPHILS % (AUTO) 74 % (42-75)
[2018-12-13] MEDS: METOPROLOL TARTRATE 50 MG TABLET PO SCH ×2 (06:19→18:02)
[2018-12-13] MEDS: LEVOTHYROXINE 25 MCG TABLET PO SCH (06:19)
[2018-12-13] MEDS: POTASSIUM CHLORIDE 20 MEQ PACKET NG SCH ×2 (08:29→18:00)
[2018-12-13] MEDS: ALBUMIN HUMAN 25% 100 ML IV SCH ×2 (08:30→20:09)
[2018-12-13] MEDS: SODIUM CHLORIDE FLUSH 10ML SYR IVF SCH ×2 (08:31→21:15)
[2018-12-13] MEDS: FAMOTIDINE 20 MG/2 ML IV SCH (08:31)
[2018-12-13] MEDS: DOXYCYCLINE 50 MG/5 ML ORAL SUSP NG SCH ×2 (08:32→21:16)
[2018-12-13] MEDS: FERROUS SULFATE 220 MG/5 ML ORAL SOL PO SCH (08:32)
[2018-12-13] MEDS: METOLAZONE 5 MG TABLET NG SCH ×2 (08:32→21:15)
[2018-12-13] MEDS: FLORASTOR 250 MG CAPSULE PO SCH ×2 (08:32→21:15)
[2018-12-13] MEDS: CHOLESTYRAMINE LIGHT 4GM PACKET NG SCH ×2 (09:30→22:44)
[2018-12-13] MEDS: AcetaZOLAMIDE INJ 500 MG IVPush SCH ×2 (11:10→21:14)
[2018-12-14] MEDS: PIPERACILLIN/TAZO/PMX 4.5GM 100 ML IV SCH ×4 (00:14→22:15)
[2018-12-14] MEDS: HEPARIN 5,000 UNITS/ML, 1ML SQ SCH ×3 (01:18→17:04)
[2018-12-14] MEDS: ALBUTEROL/IPRATROPIUM 2.5MG/0.5MG, 3 ML INLINE SCH ×3 (02:34→09:50)
[2018-12-14 04:36] LABS: MEAN CORPUSCULAR HEMOGLOBIN 23.4 pg (27.0-34.8); MEAN CORPUSCULAR HGB CONC 31.1 g/dL (32.4-35.8); MEAN CORPUSCULAR VOLUME 75.1 fL (80-100); MEAN PLATELET VOLUME 9.7 fL (7.4-10.4); PLATELET COUNT 213 x10^3/uL (130-400); RED BLOOD COUNT 4.08 x10^6/uL (3.82-5.3); RED CELL DISTRIBUTION WIDTH 21.2 % (9.6-15.2)
[2018-12-14 04:46] LABS: ANION GAP 7 mmol/L (5-15); CALCIUM 9.1 mg/dL (8.5-10.1); CHLORIDE 111 mmol/L (98-107); CREATININE 1.08 mg/dL (0.55-1.02); TRIGLYCERIDES 78 mg/dL (50-200)
[2018-12-14 05:36] LABS: BASOPHILS # (AUTO) 0.11 x10^3/uL (0-0.1); BASOPHILS % (AUTO) 1 % (0-1); EOSINOPHILS # (AUTO) 0.49 x10^3/uL (0-0.4); EOSINOPHILS % (AUTO) 3 % (1-7); LYMPHOCYTES # (AUTO) 1.16 x10^3/uL (1-3.4); LYMPHOCYTES % (AUTO) 7 % (22-44); MD SCAN; MONOCYTES # (AUTO) 1.66 x10^3/uL (0.2-0.8); MONOCYTES % (AUTO) 10 % (2-9); NEUTROPHILS # (AUTO) 12.68 x10^3/uL (1.8-6.8); NEUTROPHILS % (AUTO) 79 % (42-75)
[2018-12-14] MEDS: LEVOTHYROXINE 25 MCG TABLET PO SCH (06:08)
[2018-12-14] MEDS: METOPROLOL TARTRATE 50 MG TABLET PO SCH ×2 (06:08→17:05)
[2018-12-14] MEDS: FERROUS SULFATE 220 MG/5 ML ORAL SOL PO SCH (08:48)
[2018-12-14] MEDS: DOXYCYCLINE 50 MG/5 ML ORAL SUSP NG SCH ×2 (08:48→20:23)
[2018-12-14] MEDS: AcetaZOLAMIDE INJ 500 MG IVPush SCH ×2 (08:49→20:23)
[2018-12-14] MEDS: FAMOTIDINE 20 MG/2 ML IV SCH ×2 (08:49→20:22)
[2018-12-14] MEDS: POTASSIUM CHLORIDE 20 MEQ PACKET NG SCH ×2 (08:50→17:04)
[2018-12-14] MEDS: METOLAZONE 5 MG TABLET NG SCH ×2 (08:50→20:23)
[2018-12-14] MEDS: SODIUM CHLORIDE FLUSH 10ML SYR IVF SCH ×2 (08:50→20:22)
[2018-12-14] MEDS: FLORASTOR 250 MG CAPSULE PO SCH ×2 (08:50→20:23)
[2018-12-14] MEDS: ALBUMIN HUMAN 25% 100 ML IV SCH ×2 (08:51→20:22)
[2018-12-14] MEDS: CHOLESTYRAMINE LIGHT 4GM PACKET NG SCH ×2 (11:49→22:15)
[2018-12-14] MEDS: ALBUTEROL/IPRATROPIUM 2.5MG/0.5MG, 3 ML NPPB SCH ×3 (14:40→22:52)
[2018-12-15] MEDS: HEPARIN 5,000 UNITS/ML, 1ML SQ SCH ×3 (00:19→17:24)
[2018-12-15 04:46] LABS: MEAN CORPUSCULAR HGB CONC 30.1 g/dL (32.4-35.8); MEAN CORPUSCULAR VOLUME 76.5 fL (80-100); PLATELET COUNT 215 x10^3/uL (130-400); RED CELL DISTRIBUTION WIDTH 21.2 % (9.6-15.2)
[2018-12-15 04:48] LABS: ANION GAP 8 mmol/L (5-15); CALCIUM 9.2 mg/dL (8.5-10.1); CHLORIDE 109 mmol/L (98-107)
[2018-12-15 04:49] LABS: CREATININE 1.06 mg/dL (0.55-1.02)
[2018-12-15 05:54] LABS: BASOPHILS # (AUTO) 0.06 x10^3/uL (0-0.1); BASOPHILS % (AUTO) 0 % (0-1); EOSINOPHILS # (AUTO) 0.66 x10^3/uL (0-0.4); EOSINOPHILS % (AUTO) 4 % (1-7); LYMPHOCYTES # (AUTO) 1.19 x10^3/uL (1-3.4); LYMPHOCYTES % (AUTO) 8 % (22-44); MD SCAN; MONOCYTES # (AUTO) 1.52 x10^3/uL (0.2-0.8); MONOCYTES % (AUTO) 10 % (2-9); NEUTROPHILS # (AUTO) 12.12 x10^3/uL (1.8-6.8); NEUTROPHILS % (AUTO) 78 % (42-75)
[2018-12-15] MEDS: METOPROLOL TARTRATE 50 MG TABLET PO SCH ×2 (05:54→17:25)
[2018-12-15] MEDS: LEVOTHYROXINE 25 MCG TABLET PO SCH (05:54)
[2018-12-15] MEDS: PIPERACILLIN/TAZO/PMX 4.5GM 100 ML IV SCH ×3 (05:54→22:08)
[2018-12-15] MEDS: ALBUTEROL/IPRATROPIUM 2.5MG/0.5MG, 3 ML NPPB SCH ×5 (07:00→22:44)
[2018-12-15] MEDS: FAMOTIDINE 20 MG/2 ML IV SCH ×2 (08:22→20:27)
[2018-12-15] MEDS: POTASSIUM CHLORIDE 20 MEQ PACKET NG SCH ×2 (08:23→17:24)
[2018-12-15] MEDS: SODIUM CHLORIDE FLUSH 10ML SYR IVF SCH ×2 (08:24→20:28)
[2018-12-15] MEDS: FERROUS SULFATE 220 MG/5 ML ORAL SOL PO SCH (08:24)
[2018-12-15] MEDS: DOXYCYCLINE 50 MG/5 ML ORAL SUSP NG SCH ×2 (08:24→20:27)
[2018-12-15] MEDS: FLORASTOR 250 MG CAPSULE PO SCH ×2 (08:25→20:28)
[2018-12-15 11:57] LABS: O2 FLOW 5 L/min
[2018-12-16] MEDS: HEPARIN 5,000 UNITS/ML, 1ML SQ SCH ×3 (00:54→17:30)
[2018-12-16 04:32] LABS: ANION GAP 5 mmol/L (5-15); CALCIUM 9.5 mg/dL (8.5-10.1); CHLORIDE 109 mmol/L (98-107); CREATININE 1.01 mg/dL (0.55-1.02)
[2018-12-16 04:38] LABS: MEAN CORPUSCULAR VOLUME 77.1 fL (80-100); MEAN PLATELET VOLUME 10.3 fL (7.4-10.4); PLATELET COUNT 234 x10^3/uL (130-400); RED BLOOD COUNT 4.39 x10^6/uL (3.82-5.3); RED CELL DISTRIBUTION WIDTH 20.9 % (9.6-15.2)
[2018-12-16 05:38] LABS: BASOPHILS % (AUTO) 1 % (0-1); EOSINOPHILS # (AUTO) 0.27 x10^3/uL (0-0.4); EOSINOPHILS % (AUTO) 2 % (1-7); LYMPHOCYTES # (AUTO) 1.04 x10^3/uL (1-3.4); LYMPHOCYTES % (AUTO) 7 % (22-44); MD MORPH REVIEW ONLY; MEAN CORPUSCULAR HGB CONC 29.8 g/dL (32.4-35.8); MONOCYTES # (AUTO) 1.03 x10^3/uL (0.2-0.8); MONOCYTES % (AUTO) 7 % (2-9); NEUTROPHILS # (AUTO) 12.36 x10^3/uL (1.8-6.8); NEUTROPHILS % (AUTO) 84 % (42-75)
[2018-12-16] MEDS: PIPERACILLIN/TAZO/PMX 4.5GM 100 ML IV SCH ×3 (05:38→21:54)
[2018-12-16] MEDS: METOPROLOL TARTRATE 50 MG TABLET PO SCH ×2 (05:38→17:30)
[2018-12-16] MEDS: LEVOTHYROXINE 25 MCG TABLET PO SCH (05:38)
[2018-12-16 05:39] LABS: ANISOCYTOSIS 1+; HYPOCHROMIA 2+; MICROCYTOSIS 1+; OVALOCYTES 1+; TARGET CELLS 1+
[2018-12-16 05:40] LABS: <PLATELET ESTIMATE> ADEQUATE; LARGE PLATELETS 1+; POLYCHROMASIA 1+
[2018-12-16] MEDS: ALBUTEROL/IPRATROPIUM 2.5MG/0.5MG, 3 ML NPPB SCH ×5 (06:00→22:00)
[2018-12-16] MEDS ORDERED: FUROSEMIDE 40 MG/4 ML IV STA (09:38)
[2018-12-16] MEDS ORDERED: AcetaZOLAMIDE INJ 500 MG IVPush ONE (10:00)
[2018-12-16] MEDS: FLORASTOR 250 MG CAPSULE PO SCH ×2 (10:57→19:57)
[2018-12-16] MEDS: POTASSIUM CHLORIDE 20 MEQ PACKET PO SCH ×2 (10:57→17:30)
[2018-12-16] MEDS: DOXYCYCLINE 50 MG/5 ML ORAL SUSP NG SCH ×2 (10:58→21:54)
[2018-12-16] MEDS: FAMOTIDINE 20 MG/2 ML IV SCH ×2 (10:58→21:53)
[2018-12-16] MEDS: SODIUM CHLORIDE FLUSH 10ML SYR IVF SCH ×2 (10:59→21:53)
[2018-12-16] MEDS: FERROUS SULFATE 220 MG/5 ML ORAL SOL PO SCH (11:01)
[2018-12-17] MEDS: HEPARIN 5,000 UNITS/ML, 1ML SQ SCH ×3 (02:01→17:55)
[2018-12-17 04:31] LABS: MEAN CORPUSCULAR HGB CONC 29.9 g/dL (32.4-35.8); MEAN CORPUSCULAR VOLUME 76.9 fL (80-100); MEAN PLATELET VOLUME 10.4 fL (7.4-10.4); PLATELET COUNT 239 x10^3/uL (130-400); RED BLOOD COUNT 4.38 x10^6/uL (3.82-5.3); RED CELL DISTRIBUTION WIDTH 21.9 % (9.6-15.2)
[2018-12-17 04:39] LABS: ALBUMIN 3.3 g/dL (3.4-5.0); ANION GAP 6 mmol/L (5-15); CALCIUM 9.2 mg/dL (8.5-10.1); CHLORIDE 106 mmol/L (98-107)
[2018-12-17 04:46] LABS: BASOPHILS # (AUTO) 0.06 x10^3/uL (0-0.1); BASOPHILS % (AUTO) 1 % (0-1); EOSINOPHILS # (AUTO) 0.43 x10^3/uL (0-0.4); EOSINOPHILS % (AUTO) 3 % (1-7); LYMPHOCYTES # (AUTO) 0.94 x10^3/uL (1-3.4); LYMPHOCYTES % (AUTO) 7 % (22-44); MD SCAN; MONOCYTES # (AUTO) 0.97 x10^3/uL (0.2-0.8); MONOCYTES % (AUTO) 7 % (2-9); NEUTROPHILS # (AUTO) 10.86 x10^3/uL (1.8-6.8); NEUTROPHILS % (AUTO) 82 % (42-75)
[2018-12-17 04:48] LABS: ALANINE AMINOTRANSFERASE 78 U/L (12-78); ALKALINE PHOSPHATASE 103 U/L (45-117); BILIRUBIN,TOTAL 2.2 mg/dL (0.2-1.0); CREATININE 0.92 mg/dL (0.55-1.02); TOTAL PROTEIN 6.8 g/dL (6.4-8.2)
[2018-12-17] MEDS: PIPERACILLIN/TAZO/PMX 4.5GM 100 ML IV SCH ×3 (05:40→22:23)
[2018-12-17] MEDS: LEVOTHYROXINE 25 MCG TABLET PO SCH (05:41)
[2018-12-17] MEDS: METOPROLOL TARTRATE 50 MG TABLET PO SCH ×2 (05:41→17:55)
[2018-12-17] MEDS: ALBUTEROL/IPRATROPIUM 2.5MG/0.5MG, 3 ML NPPB SCH ×4 (06:20→20:29)
[2018-12-17] MEDS: FLORASTOR 250 MG CAPSULE PO SCH ×2 (08:26→21:22)
[2018-12-17] MEDS: FERROUS SULFATE 220 MG/5 ML ORAL SOL PO SCH (08:27)
[2018-12-17] MEDS ORDERED: POTASSIUM CHLORIDE PMX 100 ML IV ONE (09:00)
[2018-12-17] MEDS: FUROSEMIDE 100 MG in SODIUM CHLORIDE 0.9% 90 ML IV SCH ×2 (09:19→18:38)
[2018-12-17] MEDS: DOXYCYCLINE 50 MG/5 ML ORAL SUSP NG SCH ×2 (09:37→21:21)
[2018-12-17] MEDS: LISINOPRIL 5 MG TABLET PO SCH ×2 (09:37→21:22)
[2018-12-17] MEDS: SODIUM CHLORIDE FLUSH 10ML SYR IVF SCH ×2 (09:38→21:21)
[2018-12-17] MEDS: FAMOTIDINE 20 MG/2 ML IV SCH ×2 (09:38→21:22)
[2018-12-17] MEDS ORDERED: KSCALE TO 4.5 IV SCH (11:00)
[2018-12-17] MEDS ORDERED: CATHFLO-ALTEPLASE 2 MG/2 ML CATHFLUSH ONE (12:30)
[2018-12-17] MEDS: POTASSIUM CHLORIDE 30 MEQ in SODIUM CHLORIDE 0.9% 100 ML IV ONE ×2 (13:30→13:54)
[2018-12-17] MEDS: KSCALE TO 4.5 IV SCH ×2 (16:30→22:30)
[2018-12-17] MEDS ORDERED: POTASSIUM CHLORIDE 10% 40 MEQ/30 ML UDC ONE (17:03)
[2018-12-17] MEDS ORDERED: POTASSIUM CHLORIDE 10% 40 MEQ/30 ML UDC PO ONE (19:00)
[2018-12-17] MEDS ORDERED: POTASSIUM CHLORIDE 10% 40 MEQ/30 ML UDC PO SCH (21:00)
[2018-12-17] MEDS ORDERED: POTASSIUM CHLORIDE 10% ORAL 20 MEQ/15 ML ORAL.SOL PO ONE (23:00)
[2018-12-18] MEDS: HEPARIN 5,000 UNITS/ML, 1ML SQ SCH ×3 (01:48→17:14)
[2018-12-18] MEDS: KSCALE TO 4.5 IV SCH ×4 (04:30→22:30)
[2018-12-18 04:55] LABS: ANION GAP 6 mmol/L (5-15); CALCIUM 9.7 mg/dL (8.5-10.1); CHLORIDE 103 mmol/L (98-107)
[2018-12-18 05:00] LABS: CREATININE 0.98 mg/dL (0.55-1.02)
[2018-12-18 05:30] LABS: MEAN CORPUSCULAR HEMOGLOBIN 23.5 pg (27.0-34.8); MEAN CORPUSCULAR HGB CONC 30.7 g/dL (32.4-35.8); MEAN CORPUSCULAR VOLUME 76.6 fL (80-100); MEAN PLATELET VOLUME 10.2 fL (7.4-10.4); PLATELET COUNT 264 x10^3/uL (130-400); RED BLOOD COUNT 4.32 x10^6/uL (3.82-5.3); RED CELL DISTRIBUTION WIDTH 22.5 % (9.6-15.2)
[2018-12-18] MEDS ORDERED: POTASSIUM CHLORIDE 10% ORAL 20 MEQ/15 ML ORAL.SOL PO ONE (05:30)
[2018-12-18] MEDS: FUROSEMIDE 100 MG in SODIUM CHLORIDE 0.9% 90 ML IV SCH ×2 (06:09→08:30)
[2018-12-18] MEDS: PIPERACILLIN/TAZO/PMX 4.5GM 100 ML IV SCH ×3 (06:10→21:59)
[2018-12-18] MEDS: LEVOTHYROXINE 25 MCG TABLET PO SCH (06:10)
[2018-12-18] MEDS: METOPROLOL TARTRATE 50 MG TABLET PO SCH ×2 (06:10→18:26)
[2018-12-18 06:54] LABS: BASOPHILS # (AUTO) 0.01 x10^3/uL (0-0.1); BASOPHILS % (AUTO) 0 % (0-1); EOSINOPHILS # (AUTO) 0.49 x10^3/uL (0-0.4); EOSINOPHILS % (AUTO) 4 % (1-7); LYMPHOCYTES # (AUTO) 1.09 x10^3/uL (1-3.4); LYMPHOCYTES % (AUTO) 8 % (22-44); MD SCAN; MONOCYTES # (AUTO) 1.14 x10^3/uL (0.2-0.8); MONOCYTES % (AUTO) 9 % (2-9); NEUTROPHILS # (AUTO) 10.75 x10^3/uL (1.8-6.8); NEUTROPHILS % (AUTO) 80 % (42-75)
[2018-12-18] MEDS: ALBUTEROL/IPRATROPIUM 2.5MG/0.5MG, 3 ML NPPB SCH ×4 (07:00→20:30)
[2018-12-18] MEDS ORDERED: FUROSEMIDE 100 MG in SODIUM CHLORIDE 0.9% 90 ML IV SCH (08:20)
[2018-12-18] MEDS ORDERED: POTASSIUM CHLORIDE 10% 40 MEQ/30 ML UDC NG ONE (08:30)
[2018-12-18] MEDS ORDERED: AcetaZOLAMIDE INJ 500 MG IVPush ONE (08:30)
[2018-12-18] MEDS: FAMOTIDINE 20 MG/2 ML IV SCH ×2 (08:53→20:52)
[2018-12-18] MEDS: LISINOPRIL 5 MG TABLET PO SCH ×2 (08:53→20:52)
[2018-12-18] MEDS: FLORASTOR 250 MG CAPSULE PO SCH ×2 (08:53→20:51)
[2018-12-18] MEDS: SODIUM CHLORIDE FLUSH 10ML SYR IVF SCH ×2 (08:54→20:52)
[2018-12-18] MEDS: FERROUS SULFATE 220 MG/5 ML ORAL SOL PO SCH (09:41)
[2018-12-18] MEDS: DOXYCYCLINE 50 MG/5 ML ORAL SUSP NG SCH ×2 (09:48→20:51)
[2018-12-18 10:54] LABS: CLOSTRIDIUM DIFFICILE ANTIGEN NEGATIVE; CLOSTRIDIUM DIFFICILE TOXIN NEGATIVE (Negative)
[2018-12-18] MEDS ORDERED: POTASSIUM CHLORIDE 10% 40 MEQ/30 ML UDC PO ONE (12:00)
[2018-12-18] MEDS ORDERED: POTASSIUM CHLORIDE 30 MEQ in SODIUM CHLORIDE 0.9% 100 ML IV ONE (12:30)
[2018-12-18] MEDS ORDERED: DIGOXIN 0.25 MG/ML, 2ML IVPush ONE (13:30)
[2018-12-18] MEDS ORDERED: POTASSIUM CHLORIDE 10% 20 MEQ/15 ML UDC PO ONE ×2 (18:00→23:45)
[2018-12-18] MEDS: DIGOXIN 0.25 MG/ML, 2ML IVPush SCH (20:52)
[2018-12-19] MEDS: DIGOXIN 0.25 MG/ML, 2ML IVPush SCH (00:52)
[2018-12-19] MEDS: HEPARIN 5,000 UNITS/ML, 1ML SQ SCH ×3 (00:53→18:01)
[2018-12-19] MEDS: FUROSEMIDE 100 MG in SODIUM CHLORIDE 0.9% 90 ML IV SCH (01:07)
[2018-12-19] MEDS: KSCALE TO 4.5 IV SCH ×4 (04:30→22:30)
[2018-12-19] MEDS: METOPROLOL TARTRATE 50 MG TABLET PO SCH ×2 (04:48→16:34)
[2018-12-19] MEDS: LEVOTHYROXINE 25 MCG TABLET PO SCH (04:48)
[2018-12-19] MEDS: PIPERACILLIN/TAZO/PMX 4.5GM 100 ML IV SCH ×3 (05:44→21:30)
[2018-12-19] MEDS ORDERED: POTASSIUM CHLORIDE 10% ORAL 20 MEQ/15 ML ORAL.SOL PO ONE (06:00)
[2018-12-19] MEDS: FLORASTOR 250 MG CAPSULE PO SCH ×2 (08:07→21:29)
[2018-12-19] MEDS: LISINOPRIL 5 MG TABLET PO SCH ×2 (08:08→21:30)
[2018-12-19] MEDS: FAMOTIDINE 20 MG/2 ML IV SCH ×2 (08:08→21:29)
[2018-12-19] MEDS: FERROUS SULFATE 220 MG/5 ML ORAL SOL PO SCH (08:08)
[2018-12-19] MEDS: DOXYCYCLINE 50 MG/5 ML ORAL SUSP NG SCH ×2 (08:09→21:28)
[2018-12-19] MEDS: SODIUM CHLORIDE FLUSH 10ML SYR IVF SCH ×2 (08:09→21:30)
[2018-12-19] MEDS ORDERED: FUROSEMIDE 100 MG in SODIUM CHLORIDE 0.9% 90 ML IV SCH (08:30)
[2018-12-19] MEDS: ALBUTEROL/IPRATROPIUM 2.5MG/0.5MG, 3 ML NPPB SCH (08:50)
[2018-12-19] MEDS: DIPHENOXYLATE/ATROPINE TABLET PO SCH ×3 (09:18→21:29)
[2018-12-19 09:32] LABS: MEAN CORPUSCULAR HEMOGLOBIN 23.5 pg (27.0-34.8); MEAN CORPUSCULAR HGB CONC 31.1 g/dL (32.4-35.8); MEAN CORPUSCULAR VOLUME 75.6 fL (80-100); MEAN PLATELET VOLUME 10.6 fL (7.4-10.4); PLATELET COUNT 293 x10^3/uL (130-400); RED BLOOD COUNT 4.05 x10^6/uL (3.82-5.3); RED CELL DISTRIBUTION WIDTH 23.9 % (9.6-15.2)
[2018-12-19 09:45] LABS: BASOPHILS # (AUTO) 0.02 x10^3/uL (0-0.1); BASOPHILS % (AUTO) 0 % (0-1); EOSINOPHILS # (AUTO) 0.38 x10^3/uL (0-0.4); EOSINOPHILS % (AUTO) 3 % (1-7); LYMPHOCYTES # (AUTO) 1.02 x10^3/uL (1-3.4); LYMPHOCYTES % (AUTO) 9 % (22-44); MD SCAN; MONOCYTES # (AUTO) 0.94 x10^3/uL (0.2-0.8); MONOCYTES % (AUTO) 8 % (2-9); NEUTROPHILS # (AUTO) 8.94 x10^3/uL (1.8-6.8); NEUTROPHILS % (AUTO) 79 % (42-75)
[2018-12-19 10:19] LABS: ANION GAP 7 mmol/L (5-15); CALCIUM 9.4 mg/dL (8.5-10.1); CHLORIDE 103 mmol/L (98-107); CREATININE 0.99 mg/dL (0.55-1.02)
[2018-12-19] MEDS ORDERED: ALBUTEROL SULFATE 2.5 MG/3 ML NPPB PRN (12:00)
[2018-12-19] MEDS: DIGOXIN 0.25 MG TABLET PO SCH (16:34)
[2018-12-19] MEDS: POTASSIUM CHLORIDE 20 MEQ TAB.ER.PRT PO SCH (16:42)
[2018-12-19] MEDS ORDERED: POTASSIUM CHLORIDE 20 MEQ TAB.ER.PRT PO SCH (17:00)
[2018-12-19] MEDS ORDERED: ALBUTEROL/IPRATROPIUM 2.5MG/0.5MG, 3 ML NPPB SCH (21:00)
[2018-12-19] MEDS ORDERED: ALBUTEROL/IPRATROPIUM 2.5MG/0.5MG, 3 ML NPPB PRN (21:00)
[2018-12-19] MEDS: FUROSEMIDE 20 MG/2 ML IV SCH (21:29)
[2018-12-19] MEDS ORDERED: POTASSIUM CHLORIDE 10% 20 MEQ/15 ML UDC PO ONE (23:45)
[2018-12-20] MEDS: HEPARIN 5,000 UNITS/ML, 1ML SQ SCH ×2 (02:27→10:44)
[2018-12-20 04:30] LABS: MEAN CORPUSCULAR HEMOGLOBIN 23.9 pg (27.0-34.8); MEAN CORPUSCULAR HGB CONC 30.8 g/dL (32.4-35.8); MEAN CORPUSCULAR VOLUME 77.6 fL (80-100); MEAN PLATELET VOLUME 10.7 fL (7.4-10.4); PLATELET COUNT 373 x10^3/uL (130-400); RED CELL DISTRIBUTION WIDTH 26.5 % (9.6-15.2)
[2018-12-20] MEDS: KSCALE TO 4.5 IV SCH ×3 (04:30→15:54)
[2018-12-20 04:42] LABS: ALANINE AMINOTRANSFERASE 60 U/L (12-78); ALBUMIN 3.1 g/dL (3.4-5.0); ANION GAP 5 mmol/L (5-15); BASOPHILS % (AUTO) 0 % (0-1); CALCIUM 9.4 mg/dL (8.5-10.1); CHLORIDE 105 mmol/L (98-107); EOSINOPHILS # (AUTO) 0.51 x10^3/uL (0-0.4); EOSINOPHILS % (AUTO) 5 % (1-7); LYMPHOCYTES # (AUTO) 1.77 x10^3/uL (1-3.4); LYMPHOCYTES % (AUTO) 18 % (22-44); MD MORPH REVIEW ONLY; MONOCYTES # (AUTO) 0.84 x10^3/uL (0.2-0.8); MONOCYTES % (AUTO) 9 % (2-9); NEUTROPHILS # (AUTO) 6.77 x10^3/uL (1.8-6.8); NEUTROPHILS % (AUTO) 68 % (42-75)
[2018-12-20 04:43] LABS: <PLATELET ESTIMATE> ADEQUATE; ANISOCYTOSIS 1+; HYPOCHROMIA 1+; LARGE PLATELETS 1+; MICROCYTOSIS 1+; OVALOCYTES 1+; POLYCHROMASIA 1+
[2018-12-20 04:44] LABS: ALKALINE PHOSPHATASE 95 U/L (45-117); TOTAL PROTEIN 6.6 g/dL (6.4-8.2)
[2018-12-20] MEDS ORDERED: POTASSIUM CHLORIDE 10% 20 MEQ/15 ML UDC PO ONE (06:00)
[2018-12-20] MEDS: METOPROLOL TARTRATE 50 MG TABLET PO SCH ×2 (06:10→18:41)
[2018-12-20] MEDS: LEVOTHYROXINE 25 MCG TABLET PO SCH (06:10)
[2018-12-20] MEDS: DIPHENOXYLATE/ATROPINE TABLET PO SCH ×4 (06:11→21:03)
[2018-12-20] MEDS: PIPERACILLIN/TAZO/PMX 4.5GM 100 ML IV SCH ×3 (06:11→22:21)
[2018-12-20] MEDS: SODIUM CHLORIDE FLUSH 10ML SYR IVF SCH ×2 (09:00→21:10)
[2018-12-20] MEDS ORDERED: POTASSIUM CHLORIDE 20 MEQ PACKET ONE (09:17)
[2018-12-20] MEDS: POTASSIUM CHLORIDE 20 MEQ TAB.ER.PRT PO SCH ×2 (09:20→15:53)
[2018-12-20] MEDS: FLORASTOR 250 MG CAPSULE PO SCH ×2 (09:20→21:11)
[2018-12-20] MEDS: FUROSEMIDE 20 MG/2 ML IV SCH ×2 (09:20→15:54)
[2018-12-20] MEDS: LISINOPRIL 5 MG TABLET PO SCH ×2 (09:20→21:10)
[2018-12-20] MEDS: FERROUS SULFATE 220 MG/5 ML ORAL SOL PO SCH (09:21)
[2018-12-20] MEDS: DOXYCYCLINE 50 MG/5 ML ORAL SUSP NG SCH ×2 (09:21→21:12)
[2018-12-20] MEDS: FAMOTIDINE 20 MG/2 ML IV SCH (09:36)
[2018-12-20] MEDS: DIGOXIN 0.25 MG TABLET PO SCH (15:53)
[2018-12-20] MEDS: PANTOPRAZOLE 40 MG IV IVPush SCH (18:50)
[2018-12-20 19:20] LABS: ANISOCYTOSIS 1+; BASOPHILS # (AUTO) 0.01 x10^3/uL (0-0.1); BASOPHILS % (AUTO) 0 % (0-1); EOSINOPHILS # (AUTO) 0.58 x10^3/uL (0-0.4); EOSINOPHILS % (AUTO) 6 % (1-7); HYPOCHROMIA 1+; LYMPHOCYTES # (AUTO) 1.37 x10^3/uL (1-3.4); LYMPHOCYTES % (AUTO) 13 % (22-44); MD MORPH REVIEW ONLY; MEAN CORPUSCULAR HEMOGLOBIN 23.9 pg (27.0-34.8); MEAN CORPUSCULAR HGB CONC 30.8 g/dL (32.4-35.8); MEAN CORPUSCULAR VOLUME 77.4 fL (80-100); MEAN PLATELET VOLUME 10.4 fL (7.4-10.4); MICROCYTOSIS 1+; MONOCYTES # (AUTO) 1.02 x10^3/uL (0.2-0.8); MONOCYTES % (AUTO) 10 % (2-9); NEUTROPHILS % (AUTO) 72 % (42-75); PLATELET COUNT 396 x10^3/uL (130-400); POLYCHROMASIA 1+; RED BLOOD COUNT 4.51 x10^6/uL (3.82-5.3); RED CELL DISTRIBUTION WIDTH 26.4 % (9.6-15.2)
[2018-12-20 19:21] LABS: <PLATELET ESTIMATE> ADEQUATE; LARGE PLATELETS 1+; OVALOCYTES 1+; TARGET CELLS 1+
[2018-12-21 00:44] LABS: MEAN CORPUSCULAR HEMOGLOBIN 23.5 pg (27.0-34.8); MEAN CORPUSCULAR HGB CONC 30.5 g/dL (32.4-35.8); MEAN CORPUSCULAR VOLUME 77.1 fL (80-100); MEAN PLATELET VOLUME 10.3 fL (7.4-10.4); PLATELET COUNT 440 x10^3/uL (130-400); RED BLOOD COUNT 4.44 x10^6/uL (3.82-5.3); RED CELL DISTRIBUTION WIDTH 27.4 % (9.6-15.2)
[2018-12-21 01:07] LABS: MD MORPH REVIEW ONLY
[2018-12-21 01:08] LABS: BASOPHILS % (AUTO) 0 % (0-1); EOSINOPHILS # (AUTO) 0.47 x10^3/uL (0-0.4); EOSINOPHILS % (AUTO) 5 % (1-7); LYMPHOCYTES # (AUTO) 1.31 x10^3/uL (1-3.4); LYMPHOCYTES % (AUTO) 14 % (22-44); MONOCYTES # (AUTO) 0.88 x10^3/uL (0.2-0.8); MONOCYTES % (AUTO) 9 % (2-9); NEUTROPHILS # (AUTO) 6.84 x10^3/uL (1.8-6.8); NEUTROPHILS % (AUTO) 72 % (42-75)
[2018-12-21 01:11] LABS: ANISOCYTOSIS 1+; HYPOCHROMIA 1+; MICROCYTOSIS 1+; OVALOCYTES 1+; TARGET CELLS 1+; TEAR DROPS 1+
[2018-12-21 01:12] LABS: POLYCHROMASIA 1+
[2018-12-21 01:14] LABS: <PLATELET ESTIMATE> INCREASED; LARGE PLATELETS 1+
[2018-12-21 01:18] VITALS: BP 138/73
[2018-12-21] MEDS: METOPROLOL TARTRATE 50 MG TABLET PO SCH ×2 (05:40→17:37)
[2018-12-21] MEDS: DIPHENOXYLATE/ATROPINE TABLET PO SCH ×4 (05:40→21:54)
[2018-12-21] MEDS: PANTOPRAZOLE 40 MG IV IVPush SCH (05:40)
[2018-12-21] MEDS: LEVOTHYROXINE 25 MCG TABLET PO SCH (05:40)
[2018-12-21 06:25] LABS: MEAN CORPUSCULAR HEMOGLOBIN 23.7 pg (27.0-34.8); MEAN CORPUSCULAR HGB CONC 30.8 g/dL (32.4-35.8); MEAN CORPUSCULAR VOLUME 77.2 fL (80-100); MEAN PLATELET VOLUME 10.6 fL (7.4-10.4); PLATELET COUNT 440 x10^3/uL (130-400); RED BLOOD COUNT 4.36 x10^6/uL (3.82-5.3); RED CELL DISTRIBUTION WIDTH 27.5 % (9.6-15.2)
[2018-12-21 06:32] VITALS: BP 153/58
[2018-12-21 06:42] LABS: MD YES
[2018-12-21 06:51] LABS: <PLATELET ESTIMATE> INCREASED; ANISOCYTOSIS 1+; BASOS% (MANUAL) 1 % (0-1); EOS#(MANUAL) 0.96 x10^3/uL (0.0-0.4); EOS% (MANUAL) 10 % (1-7); HYPOCHROMIA 1+; LARGE PLATELETS 1+; LYMPH#(MANUAL) 0.48 x10^3/uL (1-3.4); LYMPHS% (MANUAL) 5 % (22-44); MICROCYTOSIS 1+; MONOS#(MANUAL) 0.86 x10^3/uL (0.3-2.7); MONOS% (MANUAL) 9 % (2-9); OVALOCYTES 1+; POLYCHROMASIA 1+; SEGS% (MANUAL) 75 % (42-75); TARGET CELLS 1+; TEAR DROPS 1+
[2018-12-21 07:21] LABS: CALCIUM 9.6 mg/dL (8.5-10.1); CREATININE 1.08 mg/dL (0.55-1.02)
[2018-12-21] MEDS: POTASSIUM CHLORIDE 20 MEQ TAB.ER.PRT PO SCH ×2 (07:59→17:36)
[2018-12-21] MEDS: FLORASTOR 250 MG CAPSULE PO SCH ×2 (08:00→21:53)
[2018-12-21] MEDS: LISINOPRIL 5 MG TABLET PO SCH ×2 (08:00→21:54)
[2018-12-21] MEDS: SODIUM CHLORIDE FLUSH 10ML SYR IVF SCH ×2 (08:00→21:54)
[2018-12-21] MEDS: FERROUS SULFATE 220 MG/5 ML ORAL SOL PO SCH (08:00)
[2018-12-21] MEDS: FUROSEMIDE 20 MG/2 ML IV SCH ×2 (08:01→17:37)
[2018-12-21 08:14] LABS: ANION GAP 8 mmol/L (5-15); CHLORIDE 106 mmol/L (98-107)
[2018-12-21 12:19] VITALS: BP 154/76
[2018-12-21] MEDS: DIGOXIN 0.25 MG TABLET PO SCH (16:00)
[2018-12-21 19:16] VITALS: BP 169/73
[2018-12-22] MEDS: METOPROLOL TARTRATE 50 MG TABLET PO SCH ×2 (05:46→17:43)
[2018-12-22] MEDS: LEVOTHYROXINE 25 MCG TABLET PO SCH (05:46)
[2018-12-22] MEDS: DIPHENOXYLATE/ATROPINE TABLET PO SCH ×4 (05:46→20:13)
[2018-12-22] MEDS: FERROUS SULFATE 220 MG/5 ML ORAL SOL PO SCH (12:12)
[2018-12-22] MEDS: LISINOPRIL 5 MG TABLET PO SCH ×2 (12:12→20:14)
[2018-12-22] MEDS: FLORASTOR 250 MG CAPSULE PO SCH ×2 (12:12→20:13)
[2018-12-22] MEDS: SODIUM CHLORIDE FLUSH 10ML SYR IVF SCH ×2 (12:13→20:14)
[2018-12-22] MEDS: POTASSIUM CHLORIDE 20 MEQ TAB.ER.PRT PO SCH ×2 (12:13→17:43)
[2018-12-22] MEDS: FUROSEMIDE 20 MG/2 ML IV SCH ×2 (12:14→17:44)
[2018-12-22 12:20] LABS: CHLORIDE 105 mmol/L (98-107)
[2018-12-22 12:26] LABS: ANION GAP 5 mmol/L (5-15); CALCIUM 9.7 mg/dL (8.5-10.1); CREATININE 0.89 mg/dL (0.55-1.02)
[2018-12-22 13:01] VITALS: BP 162/76
[2018-12-22] MEDS: DIGOXIN 0.25 MG TABLET PO SCH (16:00)
[2018-12-22 20:00] VITALS: BP 179/68
[2018-12-23 03:10] VITALS: BP 149/67
[2018-12-23] MEDS: METOPROLOL TARTRATE 50 MG TABLET PO SCH ×2 (05:45→18:13)
[2018-12-23] MEDS: LEVOTHYROXINE 25 MCG TABLET PO SCH (05:45)
[2018-12-23] MEDS: DIPHENOXYLATE/ATROPINE TABLET PO SCH ×4 (05:45→20:07)
[2018-12-23 07:29] VITALS: BP 142/69
[2018-12-23] MEDS ORDERED: POTASSIUM CHLORIDE 20 MEQ PACKET ONE (09:56)
[2018-12-23] MEDS: POTASSIUM CHLORIDE 20 MEQ PACKET PO SCH ×2 (10:14→16:40)
[2018-12-23] MEDS: FLORASTOR 250 MG CAPSULE PO SCH ×2 (10:14→20:07)
[2018-12-23] MEDS: LISINOPRIL 5 MG TABLET PO SCH ×2 (10:15→20:07)
[2018-12-23] MEDS: FUROSEMIDE 20 MG/2 ML IV SCH ×2 (10:16→16:40)
[2018-12-23] MEDS: FERROUS SULFATE 220 MG/5 ML ORAL SOL PO SCH (10:19)
[2018-12-23] MEDS: SODIUM CHLORIDE FLUSH 10ML SYR IVF SCH ×2 (10:25→20:07)
[2018-12-23 14:37] VITALS: BP 139/73
[2018-12-23] MEDS: DIGOXIN 0.25 MG TABLET PO SCH (16:40)
[2018-12-23 19:57] VITALS: BP_SYST 173; BP_SYST 183; BP_DIAS 76; BP_DIAS 97
[2018-12-23 20:06] VITALS: BP 177/79
[2018-12-23 23:50] VITALS: BP 147/70
[2018-12-24 03:04] VITALS: BP 147/73
[2018-12-24 05:26] VITALS: BP 159/60
[2018-12-24] MEDS: METOPROLOL TARTRATE 50 MG TABLET PO SCH ×2 (05:27→16:52)
[2018-12-24] MEDS: DIPHENOXYLATE/ATROPINE TABLET PO SCH ×3 (05:27→16:00)
[2018-12-24] MEDS: LEVOTHYROXINE 25 MCG TABLET PO SCH (05:27)
[2018-12-24 05:42] LABS: MEAN CORPUSCULAR HEMOGLOBIN 24.3 pg (27.0-34.8); MEAN CORPUSCULAR HGB CONC 31.3 g/dL (32.4-35.8); MEAN CORPUSCULAR VOLUME 77.9 fL (80-100); RED BLOOD COUNT 4.38 x10^6/uL (3.82-5.3)
[2018-12-24 05:45] LABS: CHLORIDE 103 mmol/L (98-107)
[2018-12-24 05:52] LABS: ANION GAP 8 mmol/L (5-15); CALCIUM 9.3 mg/dL (8.5-10.1); CREATININE 0.71 mg/dL (0.55-1.02)
[2018-12-24 06:08] LABS: BASOPHILS # (AUTO) 0.05 x10^3/uL (0-0.1); BASOPHILS % (AUTO) 0 % (0-1); EOSINOPHILS # (AUTO) 0.38 x10^3/uL (0-0.4); EOSINOPHILS % (AUTO) 3 % (1-7); LYMPHOCYTES % (AUTO) 11 % (22-44); MD SCAN; MEAN PLATELET VOLUME 9.9 fL (7.4-10.4); MONOCYTES # (AUTO) 2.08 x10^3/uL (0.2-0.8); MONOCYTES % (AUTO) 16 % (2-9); NEUTROPHILS # (AUTO) 9.33 x10^3/uL (1.8-6.8); NEUTROPHILS % (AUTO) 70 % (42-75); PLATELET COUNT 588 x10^3/uL (130-400)
[2018-12-24 07:51] VITALS: BP 154/78
[2018-12-24] MEDS: FUROSEMIDE 20 MG/2 ML IV SCH ×2 (08:08→16:53)
[2018-12-24] MEDS: POTASSIUM CHLORIDE 20 MEQ PACKET PO SCH ×2 (08:08→16:52)
[2018-12-24] MEDS: LISINOPRIL 5 MG TABLET PO SCH ×2 (08:09→20:27)
[2018-12-24] MEDS: SODIUM CHLORIDE FLUSH 10ML SYR IVF SCH ×2 (08:09→20:27)
[2018-12-24] MEDS: FLORASTOR 250 MG CAPSULE PO SCH ×2 (08:09→20:27)
[2018-12-24] MEDS: FERROUS SULFATE 220 MG/5 ML ORAL SOL PO SCH (08:44)
[2018-12-24 13:07] VITALS: BP 150/79
[2018-12-24] MEDS: DIGOXIN 0.25 MG TABLET PO SCH (16:52)
[2018-12-24] MEDS ORDERED: DIPHENOXYLATE/ATROPINE TABLET PO PRN (17:30)
[2018-12-24 19:37] VITALS: BP 144/75
[2018-12-25 00:16] VITALS: BP 165/74
[2018-12-25 05:24] VITALS: BP 125/77
[2018-12-25] MEDS: LEVOTHYROXINE 25 MCG TABLET PO SCH (05:31)
[2018-12-25] MEDS: METOPROLOL TARTRATE 50 MG TABLET PO SCH ×2 (05:31→17:27)
[2018-12-25 06:51] LABS: ANION GAP 5 mmol/L (5-15); CALCIUM 9.2 mg/dL (8.5-10.1); CHLORIDE 103 mmol/L (98-107); CREATININE 0.72 mg/dL (0.55-1.02)
[2018-12-25 06:53] LABS: MEAN CORPUSCULAR HEMOGLOBIN 24.3 pg (27.0-34.8); MEAN CORPUSCULAR HGB CONC 30.8 g/dL (32.4-35.8); MEAN PLATELET VOLUME 9.6 fL (7.4-10.4); PLATELET COUNT 570 x10^3/uL (130-400); RED BLOOD COUNT 4.34 x10^6/uL (3.82-5.3); RED CELL DISTRIBUTION WIDTH 29.7 % (9.6-15.2)
[2018-12-25 07:15] LABS: BASOPHILS % (AUTO) 0 % (0-1); EOSINOPHILS # (AUTO) 0.82 x10^3/uL (0-0.4); EOSINOPHILS % (AUTO) 6 % (1-7); LYMPHOCYTES # (AUTO) 1.94 x10^3/uL (1-3.4); LYMPHOCYTES % (AUTO) 14 % (22-44); MD SCAN; MONOCYTES # (AUTO) 2.24 x10^3/uL (0.2-0.8); MONOCYTES % (AUTO) 16 % (2-9); NEUTROPHILS # (AUTO) 8.71 x10^3/uL (1.8-6.8); NEUTROPHILS % (AUTO) 64 % (42-75)
[2018-12-25 07:55] VITALS: BP 151/62
[2018-12-25] MEDS: FERROUS SULFATE 220 MG/5 ML ORAL SOL PO SCH (10:15)
[2018-12-25] MEDS: FUROSEMIDE 20 MG/2 ML IV SCH ×2 (10:16→17:26)
[2018-12-25] MEDS: LISINOPRIL 5 MG TABLET PO SCH ×2 (10:16→21:29)
[2018-12-25] MEDS: FLORASTOR 250 MG CAPSULE PO SCH ×2 (10:16→21:28)
[2018-12-25] MEDS: SODIUM CHLORIDE FLUSH 10ML SYR IVF SCH ×2 (10:17→21:28)
[2018-12-25] MEDS: POTASSIUM CHLORIDE 20 MEQ PACKET PO SCH ×2 (10:17→17:27)
[2018-12-25 13:03] VITALS: BP 153/80
[2018-12-25] MEDS: ENOXAPARIN 40 MG/0.4 ML SQ SCH (17:26)
[2018-12-25] MEDS: DIGOXIN 0.25 MG TABLET PO SCH (17:26)
[2018-12-25 19:19] VITALS: BP 154/62
[2018-12-26 02:13] VITALS: BP 171/74
[2018-12-26 03:59] LABS: MEAN CORPUSCULAR HEMOGLOBIN 24.2 pg (27.0-34.8); MEAN CORPUSCULAR HGB CONC 31.1 g/dL (32.4-35.8); MEAN CORPUSCULAR VOLUME 77.7 fL (80-100); MEAN PLATELET VOLUME 10.3 fL (7.4-10.4); PLATELET COUNT 618 x10^3/uL (130-400); RED BLOOD COUNT 4.26 x10^6/uL (3.82-5.3); RED CELL DISTRIBUTION WIDTH 29.9 % (9.6-15.2)
[2018-12-26 04:07] LABS: ALBUMIN 2.9 g/dL (3.4-5.0); ANION GAP 3 mmol/L (5-15); CALCIUM 8.9 mg/dL (8.5-10.1); CHLORIDE 101 mmol/L (98-107)
[2018-12-26 04:11] LABS: ALANINE AMINOTRANSFERASE 30 U/L (12-78); ALKALINE PHOSPHATASE 100 U/L (45-117); BILIRUBIN,TOTAL 1.7 mg/dL (0.2-1.0); CREATININE 0.66 mg/dL (0.55-1.02); TOTAL PROTEIN 6.9 g/dL (6.4-8.2)
[2018-12-26 04:13] LABS: ANISOCYTOSIS 1+; BASOPHILS # (AUTO) 0.06 x10^3/uL (0-0.1); BASOPHILS % (AUTO) 0 % (0-1); EOSINOPHILS # (AUTO) 0.82 x10^3/uL (0-0.4); EOSINOPHILS % (AUTO) 6 % (1-7); HYPOCHROMIA 1+; LYMPHOCYTES % (AUTO) 13 % (22-44); MD MORPH REVIEW ONLY; MICROCYTOSIS 1+; MONOCYTES # (AUTO) 2.13 x10^3/uL (0.2-0.8); MONOCYTES % (AUTO) 16 % (2-9); NEUTROPHILS # (AUTO) 8.69 x10^3/uL (1.8-6.8); NEUTROPHILS % (AUTO) 64 % (42-75); OVALOCYTES 1+; POLYCHROMASIA 1+
[2018-12-26 04:14] LABS: TARGET CELLS 1+; TEAR DROPS 1+
[2018-12-26 04:15] LABS: <PLATELET ESTIMATE> INCREASED; LARGE PLATELETS 1+
[2018-12-26] MEDS: LEVOTHYROXINE 25 MCG TABLET PO SCH (05:16)
[2018-12-26 05:51] VITALS: BP 153/70
[2018-12-26] MEDS: METOPROLOL TARTRATE 50 MG TABLET PO SCH ×2 (05:54→17:50)
[2018-12-26 06:42] VITALS: BP 158/70
[2018-12-26] MEDS: FERROUS SULFATE 220 MG/5 ML ORAL SOL PO SCH (10:24)
[2018-12-26] MEDS: POTASSIUM CHLORIDE 20 MEQ PACKET PO SCH ×2 (10:24→17:50)
[2018-12-26] MEDS: LISINOPRIL 5 MG TABLET PO SCH ×2 (10:25→21:28)
[2018-12-26] MEDS: SODIUM CHLORIDE FLUSH 10ML SYR IVF SCH ×2 (10:25→21:28)
[2018-12-26] MEDS: FLORASTOR 250 MG CAPSULE PO SCH ×2 (10:25→21:27)
[2018-12-26] MEDS: FUROSEMIDE 20 MG/2 ML IV SCH ×2 (10:26→17:51)
[2018-12-26 14:02] VITALS: BP 168/71
[2018-12-26] MEDS: ENOXAPARIN 40 MG/0.4 ML SQ SCH (17:30)
[2018-12-26] MEDS: DIGOXIN 0.25 MG TABLET PO SCH (17:50)
[2018-12-26 19:52] VITALS: BP 167/76
[2018-12-27 02:52] VITALS: BP 157/80
[2018-12-27] MEDS: METOPROLOL TARTRATE 50 MG TABLET PO SCH (05:15)
[2018-12-27] MEDS: LEVOTHYROXINE 25 MCG TABLET PO SCH (05:17)
[2018-12-27 06:17] LABS: MEAN CORPUSCULAR HEMOGLOBIN 24.4 pg (27.0-34.8); MEAN CORPUSCULAR HGB CONC 31.2 g/dL (32.4-35.8); MEAN CORPUSCULAR VOLUME 78.2 fL (80-100); MEAN PLATELET VOLUME 9.7 fL (7.4-10.4); PLATELET COUNT 590 x10^3/uL (130-400); RED CELL DISTRIBUTION WIDTH 29.5 % (9.6-15.2)
[2018-12-27 06:22] LABS: ALBUMIN 2.8 g/dL (3.4-5.0); ANION GAP 3 mmol/L (5-15); CALCIUM 9.1 mg/dL (8.5-10.1); CHLORIDE 98 mmol/L (98-107); CREATININE 0.66 mg/dL (0.55-1.02)
[2018-12-27 06:31] VITALS: BP 158/70
[2018-12-27 06:37] LABS: BASOPHILS # (AUTO) 0.01 x10^3/uL (0-0.1); BASOPHILS % (AUTO) 0 % (0-1); EOSINOPHILS # (AUTO) 0.99 x10^3/uL (0-0.4); EOSINOPHILS % (AUTO) 8 % (1-7); LYMPHOCYTES # (AUTO) 1.31 x10^3/uL (1-3.4); LYMPHOCYTES % (AUTO) 11 % (22-44); MD SCAN; MONOCYTES # (AUTO) 1.64 x10^3/uL (0.2-0.8); MONOCYTES % (AUTO) 14 % (2-9); NEUTROPHILS % (AUTO) 67 % (42-75)
[2018-12-27] MEDS: FLORASTOR 250 MG CAPSULE PO SCH ×2 (09:52→21:25)
[2018-12-27] MEDS: FUROSEMIDE 20 MG/2 ML IV SCH (09:52)
[2018-12-27] MEDS: POTASSIUM CHLORIDE 20 MEQ PACKET PO SCH ×2 (09:53→17:29)
[2018-12-27] MEDS: FERROUS SULFATE 220 MG/5 ML ORAL SOL PO SCH (09:53)
[2018-12-27] MEDS: LISINOPRIL 5 MG TABLET PO SCH ×2 (09:53→21:26)
[2018-12-27] MEDS: SODIUM CHLORIDE FLUSH 10ML SYR IVF SCH ×2 (09:54→21:25)
--- NOTE | 2018-12-27 13:34 | NUR ---
PAPER [employer]RIER REC: PUREE/THIN Addendum: 12/27/18 at [address] Amended: Links added.
[2018-12-27 14:00] VITALS: BP 168/71
[2018-12-27] MEDS: FUROSEMIDE 20 MG TABLET PO SCH ×3 (15:00→17:29)
[2018-12-27] MEDS: ENOXAPARIN 40 MG/0.4 ML SQ SCH (17:17)
[2018-12-27] MEDS: DIGOXIN 0.25 MG TABLET PO SCH (17:26)
[2018-12-27] MEDS: METOPROLOL TARTRATE 25 MG TABLET PO SCH (17:29)
[2018-12-27 19:52] VITALS: BP 157/80
[2018-12-28 02:28] VITALS: BP 163/72
[2018-12-28] MEDS: METOPROLOL TARTRATE 25 MG TABLET PO SCH ×2 (05:39→17:00)
[2018-12-28] MEDS: LEVOTHYROXINE 25 MCG TABLET PO SCH (05:39)
[2018-12-28 05:58] LABS: MEAN CORPUSCULAR HGB CONC 30.9 g/dL (32.4-35.8); MEAN CORPUSCULAR VOLUME 77.5 fL (80-100); MEAN PLATELET VOLUME 9.7 fL (7.4-10.4); PLATELET COUNT 587 x10^3/uL (130-400); RED BLOOD COUNT 4.37 x10^6/uL (3.82-5.3)
[2018-12-28 06:02] LABS: ALANINE AMINOTRANSFERASE 33 U/L (12-78); ALBUMIN 2.8 g/dL (3.4-5.0); ANION GAP 6 mmol/L (5-15); CALCIUM 9.1 mg/dL (8.5-10.1); CHLORIDE 97 mmol/L (98-107); CREATININE 0.67 mg/dL (0.55-1.02)
[2018-12-28 06:05] LABS: ALKALINE PHOSPHATASE 109 U/L (45-117); BILIRUBIN,TOTAL 1.2 mg/dL (0.2-1.0)
[2018-12-28 06:25] LABS: BASOPHILS # (AUTO) 0.12 x10^3/uL (0-0.1); BASOPHILS % (AUTO) 1 % (0-1); EOSINOPHILS # (AUTO) 0.89 x10^3/uL (0-0.4); EOSINOPHILS % (AUTO) 7 % (1-7); LYMPHOCYTES # (AUTO) 1.71 x10^3/uL (1-3.4); LYMPHOCYTES % (AUTO) 14 % (22-44); MD SCAN; MONOCYTES % (AUTO) 13 % (2-9); NEUTROPHILS # (AUTO) 8.17 x10^3/uL (1.8-6.8); NEUTROPHILS % (AUTO) 65 % (42-75)
[2018-12-28 07:11] VITALS: BP 157/76
[2018-12-28] MEDS: FLORASTOR 250 MG CAPSULE PO SCH ×2 (08:13→20:28)
[2018-12-28] MEDS: SODIUM CHLORIDE FLUSH 10ML SYR IVF SCH ×2 (08:13→20:29)
[2018-12-28] MEDS: FERROUS SULFATE 220 MG/5 ML ORAL SOL PO SCH (08:13)
[2018-12-28] MEDS: FUROSEMIDE 20 MG TABLET PO SCH ×2 (08:13→17:00)
[2018-12-28] MEDS: LISINOPRIL 5 MG TABLET PO SCH ×2 (08:13→20:28)
[2018-12-28] MEDS: POTASSIUM CHLORIDE 20 MEQ PACKET PO SCH ×2 (08:14→17:01)
[2018-12-28 16:05] VITALS: BP 164/67
[2018-12-28] MEDS: DIGOXIN 0.25 MG TABLET PO SCH (17:00)
[2018-12-28] MEDS: ENOXAPARIN 40 MG/0.4 ML SQ SCH (17:03)
[2018-12-28 20:24] VITALS: BP 167/86
[2018-12-28 20:30] VITALS: BP 159/78
[2018-12-29 01:11] VITALS: BP 165/71
[2018-12-29] MEDS: METOPROLOL TARTRATE 25 MG TABLET PO SCH ×2 (04:48→17:56)
[2018-12-29] MEDS: LEVOTHYROXINE 25 MCG TABLET PO SCH (04:48)
[2018-12-29 05:30] LABS: MEAN CORPUSCULAR HEMOGLOBIN 23.8 pg (27.0-34.8); MEAN CORPUSCULAR HGB CONC 30.7 g/dL (32.4-35.8); MEAN CORPUSCULAR VOLUME 77.4 fL (80-100); MEAN PLATELET VOLUME 9.7 fL (7.4-10.4); PLATELET COUNT 555 x10^3/uL (130-400); RED BLOOD COUNT 4.36 x10^6/uL (3.82-5.3); RED CELL DISTRIBUTION WIDTH 29.7 % (9.6-15.2)
[2018-12-29 05:39] LABS: ALBUMIN 2.8 g/dL (3.4-5.0); CALCIUM 9.2 mg/dL (8.5-10.1)
[2018-12-29 05:42] LABS: ALANINE AMINOTRANSFERASE 36 U/L (12-78); ALKALINE PHOSPHATASE 117 U/L (45-117); BILIRUBIN,TOTAL 1.1 mg/dL (0.2-1.0); CREATININE 0.66 mg/dL (0.55-1.02); TOTAL PROTEIN 6.8 g/dL (6.4-8.2)
[2018-12-29 05:49] LABS: ANION GAP 7 mmol/L (5-15); CHLORIDE 98 mmol/L (98-107)
[2018-12-29 06:05] LABS: BASOPHILS # (AUTO) 0.06 x10^3/uL (0-0.1); BASOPHILS % (AUTO) 0 % (0-1); EOSINOPHILS % (AUTO) 8 % (1-7); LYMPHOCYTES % (AUTO) 13 % (22-44); MD SCAN; MONOCYTES # (AUTO) 1.67 x10^3/uL (0.2-0.8); MONOCYTES % (AUTO) 13 % (2-9); NEUTROPHILS # (AUTO) 8.39 x10^3/uL (1.8-6.8); NEUTROPHILS % (AUTO) 66 % (42-75)
[2018-12-29 07:08] VITALS: BP 162/71
[2018-12-29] MEDS: FLORASTOR 250 MG CAPSULE PO SCH ×2 (08:52→20:34)
[2018-12-29] MEDS: LISINOPRIL 5 MG TABLET PO SCH ×2 (08:52→20:35)
[2018-12-29] MEDS: FUROSEMIDE 20 MG TABLET PO SCH ×2 (08:52→17:56)
[2018-12-29] MEDS: POTASSIUM CHLORIDE 20 MEQ PACKET PO SCH ×2 (08:52→17:56)
[2018-12-29] MEDS: FERROUS SULFATE 220 MG/5 ML ORAL SOL PO SCH (08:52)
[2018-12-29] MEDS: SODIUM CHLORIDE FLUSH 10ML SYR IVF SCH ×2 (08:53→20:35)
[2018-12-29 14:42] VITALS: BP 151/65
[2018-12-29] MEDS: ENOXAPARIN 40 MG/0.4 ML SQ SCH (17:30)
[2018-12-29 20:32] VITALS: BP 167/67
[2018-12-29 20:44] VITALS: BP 155/72
[2018-12-30 00:56] VITALS: BP 165/77
[2018-12-30] MEDS: METOPROLOL TARTRATE 25 MG TABLET PO SCH ×2 (04:48→17:53)
[2018-12-30] MEDS: LEVOTHYROXINE 25 MCG TABLET PO SCH (04:48)
[2018-12-30 05:53] LABS: MEAN CORPUSCULAR HEMOGLOBIN 23.7 pg (27.0-34.8); MEAN CORPUSCULAR HGB CONC 30.3 g/dL (32.4-35.8); MEAN CORPUSCULAR VOLUME 78.1 fL (80-100); MEAN PLATELET VOLUME 9.9 fL (7.4-10.4); PLATELET COUNT 538 x10^3/uL (130-400); RED BLOOD COUNT 4.43 x10^6/uL (3.82-5.3); RED CELL DISTRIBUTION WIDTH 29.6 % (9.6-15.2)
[2018-12-30 05:54] LABS: ALANINE AMINOTRANSFERASE 38 U/L (12-78); ALBUMIN 2.3 g/dL (3.4-5.0); ANION GAP 4 mmol/L (5-15); CALCIUM 9.2 mg/dL (8.5-10.1); CHLORIDE 103 mmol/L (98-107)
[2018-12-30 05:57] LABS: ALKALINE PHOSPHATASE 120 U/L (45-117); BILIRUBIN,TOTAL 0.9 mg/dL (0.2-1.0); TOTAL PROTEIN 6.9 g/dL (6.4-8.2)
[2018-12-30 06:11] LABS: BASOPHILS # (AUTO) 0.11 x10^3/uL (0-0.1); BASOPHILS % (AUTO) 1 % (0-1); EOSINOPHILS # (AUTO) 0.91 x10^3/uL (0-0.4); EOSINOPHILS % (AUTO) 7 % (1-7); LYMPHOCYTES # (AUTO) 1.97 x10^3/uL (1-3.4); LYMPHOCYTES % (AUTO) 15 % (22-44); MD SCAN; MONOCYTES # (AUTO) 1.45 x10^3/uL (0.2-0.8); MONOCYTES % (AUTO) 11 % (2-9); NEUTROPHILS # (AUTO) 8.48 x10^3/uL (1.8-6.8); NEUTROPHILS % (AUTO) 66 % (42-75)
[2018-12-30 08:53] VITALS: BP 160/73
[2018-12-30] MEDS: POTASSIUM CHLORIDE 20 MEQ PACKET PO SCH ×2 (09:43→17:53)
[2018-12-30] MEDS: LISINOPRIL 5 MG TABLET PO SCH ×2 (09:43→20:06)
[2018-12-30] MEDS: FLORASTOR 250 MG CAPSULE PO SCH ×2 (09:44→20:05)
[2018-12-30] MEDS: FUROSEMIDE 20 MG TABLET PO SCH ×2 (09:44→17:53)
[2018-12-30] MEDS: DIGOXIN 0.25 MG TABLET PO SCH (09:45)
[2018-12-30] MEDS: SODIUM CHLORIDE FLUSH 10ML SYR IVF SCH ×2 (09:45→20:06)
[2018-12-30] MEDS: FERROUS SULFATE 220 MG/5 ML ORAL SOL PO SCH (10:07)
[2018-12-30 14:22] VITALS: BP 158/76
--- NOTE | 2018-12-30 16:21 | NUR ---
Green activity sheet initiated: remind pt to do bed exercises bed in chair position for meals bed exercies to do 2-3 times a day(wrote down for pt and placed at bedside table): leg lifts- 10 on each side buttock squeezes- 10 on each side ankle pumps- 1-2 minute every hour UE punches x10 tricep curls x10 hand clinical data specialist ex 5 times each side Addendum: 12/30/18 at 1633 by Ca Salinas PT Amended: Links added.
[2018-12-30] MEDS: ENOXAPARIN 40 MG/0.4 ML SQ SCH (17:30)
[2018-12-30 20:34] VITALS: BP 158/76
[2018-12-31 02:49] VITALS: BP 161/67
[2018-12-31] MEDS: LEVOTHYROXINE 25 MCG TABLET PO SCH (05:27)
[2018-12-31] MEDS: METOPROLOL TARTRATE 25 MG TABLET PO SCH ×2 (05:27→17:58)
[2018-12-31 07:10] VITALS: BP 168/69
[2018-12-31] MEDS: FUROSEMIDE 20 MG TABLET PO SCH ×2 (08:49→17:58)
[2018-12-31] MEDS: FLORASTOR 250 MG CAPSULE PO SCH ×2 (08:49→20:58)
[2018-12-31] MEDS: POTASSIUM CHLORIDE 20 MEQ PACKET PO SCH (08:50)
[2018-12-31] MEDS: SODIUM CHLORIDE FLUSH 10ML SYR IVF SCH ×2 (08:50→20:58)
[2018-12-31] MEDS: LISINOPRIL 5 MG TABLET PO SCH ×2 (08:50→20:58)
[2018-12-31] MEDS: FERROUS SULFATE 220 MG/5 ML ORAL SOL PO SCH (08:50)
[2018-12-31 12:30] VITALS: BP 164/67
[2018-12-31] MEDS ORDERED: LEVO25TA2 PO (16:57)
[2018-12-31] MEDS ORDERED: DIGO250T PO ×3 (16:57→16:59)
[2018-12-31] MEDS ORDERED: FURO20TA3 PO (16:57)
[2018-12-31] MEDS ORDERED: LISI5TAB7 PO (16:57)
[2018-12-31] MEDS ORDERED: METO25TA35 PO (16:57)
[2018-12-31] MEDS: ENOXAPARIN 40 MG/0.4 ML SQ SCH (17:30)
[2018-12-31 17:43] LABS: ANION GAP 3 mmol/L (5-15); CHLORIDE 96 mmol/L (98-107); CREATININE 0.58 mg/dL (0.55-1.02)
[2018-12-31 19:19] VITALS: BP 163/79
[2019-01-01 00:52] VITALS: BP 165/67
[2019-01-01 05:44] VITALS: BP 153/65
[2019-01-01] MEDS: LEVOTHYROXINE 25 MCG TABLET PO SCH (05:48)
[2019-01-01] MEDS: METOPROLOL TARTRATE 25 MG TABLET PO SCH (05:48)
[2019-01-01 06:35] VITALS: BP 158/72
[2019-01-01] MEDS: FERROUS SULFATE 220 MG/5 ML ORAL SOL PO SCH (08:15)
[2019-01-01] MEDS: LISINOPRIL 5 MG TABLET PO SCH (08:15)
[2019-01-01] MEDS: FLORASTOR 250 MG CAPSULE PO SCH (08:15)
[2019-01-01] MEDS: FUROSEMIDE 20 MG TABLET PO SCH (08:15)
[2019-01-01] MEDS: DIGOXIN 0.25 MG TABLET PO SCH (08:15)
[2019-01-01] MEDS: SODIUM CHLORIDE FLUSH 10ML SYR IVF SCH (08:16)
[2019-01-01] MEDS ORDERED: POTA10CA PO (08:24)
== END 2019-01-01 13:23 | DRG 870 ==
LOC: ED 16:27 → EDIP 18:38 → 5SO 19:47 → CCU 12-05 16:05 → 4EST 12-21 00:13
PROVIDERS: ADMIT Internal Medicine; ATTEND Internal Medicine
PROC: 0T9B70Z Drainage of Bladder with Drainage Device, Via Natural or Artificial Opening (ICD-10-PCS; 2018-12-02)
PROC: 30233K1 Transfusion of Nonautologous Frozen Plasma into Peripheral Vein, Percutaneous Approach (ICD-10-PCS; principal; 2018-12-05)
PROC: 5A1955Z Respiratory Ventilation, Greater than 96 Consecutive Hours (ICD-10-PCS; 2018-12-05)
PROC: 0W993ZZ Drainage of Right Pleural Cavity, Percutaneous Approach (ICD-10-PCS; 2018-12-05)
PROC: 0FJ43ZZ Inspection of Gallbladder, Percutaneous Approach (ICD-10-PCS; 2018-12-05)
PROC: 0BH17EZ Insertion of Endotracheal Airway into Trachea, Via Natural or Artificial Opening (ICD-10-PCS; 2018-12-05)
PROC: 0W993ZZ Drainage of Right Pleural Cavity, Percutaneous Approach (ICD-10-PCS; 2018-12-09)
PROC: 5A09357 Assistance with Respiratory Ventilation, Less than 24 Consecutive Hours, Continuous Positive Airway Pressure (ICD-10-PCS; 2018-12-14)
PROC: 5A09357 Assistance with Respiratory Ventilation, Less than 24 Consecutive Hours, Continuous Positive Airway Pressure (ICD-10-PCS; 2018-12-16)
PROC: 5A09357 Assistance with Respiratory Ventilation, Less than 24 Consecutive Hours, Continuous Positive Airway Pressure (ICD-10-PCS; 2018-12-17)
DX: A41.9 Sepsis, unspecified organism (principal); E43 Unspecified severe protein-calorie malnutrition; G93.41 Metabolic encephalopathy; I50.23 Acute on chronic systolic (congestive) heart failure; J15.9 Unspecified bacterial pneumonia; J96.01 Acute respiratory failure with hypoxia; J96.02 Acute respiratory failure with hypercapnia; K72.00 Acute and subacute hepatic failure without coma; N17.0 Acute kidney failure with tubular necrosis; B17.9 Acute viral hepatitis, unspecified; C20 Malignant neoplasm of rectum; D68.59 Other primary thrombophilia; E87.4 Mixed disorder of acid-base balance; I42.0 Dilated cardiomyopathy; I47.1 Supraventricular tachycardia; K80.12 Calculus of gallbladder with acute and chronic cholecystitis without obstruction; L97.919 Non-pressure chronic ulcer of unspecified part of right lower leg with unspecified severity; L97.929 Non-pressure chronic ulcer of unspecified part of left lower leg with unspecified severity; Z99.11 Dependence on respirator [ventilator] status; D50.9 Iron deficiency anemia, unspecified; D69.6 Thrombocytopenia, unspecified; E03.4 Atrophy of thyroid (acquired); Z68.27 Body mass index [BMI] 27.0-27.9, adult; E66.01 Morbid (severe) obesity due to excess calories; E86.0 Dehydration; E87.5 Hyperkalemia; I07.1 Rheumatic tricuspid insufficiency; I11.0 Hypertensive heart disease with heart failure; I27.20 Pulmonary hypertension, unspecified; I50.82 Biventricular heart failure; I48.2 Chronic atrial fibrillation; I73.9 Peripheral vascular disease, unspecified; I77.6 Arteritis, unspecified; I83.019 Varicose veins of right lower extremity with ulcer of unspecified site; I83.029 Varicose veins of left lower extremity with ulcer of unspecified site; K57.30 Diverticulosis of large intestine without perforation or abscess without bleeding; K64.8 Other hemorrhoids; K76.1 Chronic passive congestion of liver; L97.509 Non-pressure chronic ulcer of other part of unspecified foot with unspecified severity; R13.10 Dysphagia, unspecified; Z66 Do not resuscitate; Z87.01 Personal history of pneumonia (recurrent); Z91.14 Patient's other noncompliance with medication regimen
CPT/HCPCS: 32555; 36415; 36600; 74018; 74230; 75989; 82150; 82945; 83986; 84145; 96361; 99291; J3490; J7620; 47490; 70450; 71045; 74176; 76700; 80048; 80053; 80061; 80069; 80074; 80076; 80162; 80307; 81001; 82040; 82140; 82533; 82550; 82728; 82803; 82962; 83036; 83540; 83550; 83605; 83615; 83690; 83735; 83880; 84100; 84132; 84157; 84439; 84443; 84478; 84481; 84484; 85025; 85027; 85610; 85651; 85730; 86022; 86140; 86850; 86900; 87040; 87070; 87075; 87081; 87086; 87102; 87116; 87205; 87206; 87324; 88112; 88305; 89051; 93005; 93306; 93308; 93321; 93325; 93922; 94002; 94003; 94150; 94640; 94660; 96365; 96375; 99156; 99157; C1894; G0378; J0878; J1644; J1650; J1940; J2020; J2250; J2543; J2704; J2997; J3010; J3480; P9047; Q9967; C9113; J0360; J1120; J1160; J2270; J2310; J3475; J7030; P9017

== ENCOUNTER → 2019-01-21 | Outpatient (CLI) | payer BC ==
[~2019-01-21] MED LIST changes: +DIGO250T PO; +FURO20TA3 PO; +LEVO25TA2 PO; +LISI5TAB7 PO; +METO25TA35 PO; +POTA10CA PO
== END | disposition home or self-care (01) ==
LOC: WOUND 10:00
PROVIDERS: ATTEND Family Medicine
DX: I87.313 Chronic venous hypertension (idiopathic) with ulcer of bilateral lower extremity (principal); L97.515 Non-pressure chronic ulcer of other part of right foot with muscle involvement without evidence of necrosis; L97.525 Non-pressure chronic ulcer of other part of left foot with muscle involvement without evidence of necrosis; L97.212 Non-pressure chronic ulcer of right calf with fat layer exposed; I11.0 Hypertensive heart disease with heart failure; I50.41 Acute combined systolic (congestive) and diastolic (congestive) heart failure; M18.9 Osteoarthritis of first carpometacarpal joint, unspecified; I48.2 Chronic atrial fibrillation; I73.9 Peripheral vascular disease, unspecified; E66.01 Morbid (severe) obesity due to excess calories; Z68.28 Body mass index [BMI] 28.0-28.9, adult
CPT/HCPCS: 97597; 97598

== ENCOUNTER 2019-01-28 10:27 | Outpatient (CLI) | payer BC | END 2019-01-28 23:59 | disposition home or self-care (01) | LOC: WOUND 10:27 | PROVIDERS: ATTEND Family Medicine | DX: I87.313 Chronic venous hypertension (idiopathic) with ulcer of bilateral lower extremity (principal); L97.515 Non-pressure chronic ulcer of other part of right foot with muscle involvement without evidence of necrosis; L97.525 Non-pressure chronic ulcer of other part of left foot with muscle involvement without evidence of necrosis; L97.212 Non-pressure chronic ulcer of right calf with fat layer exposed; I11.0 Hypertensive heart disease with heart failure; I50.41 Acute combined systolic (congestive) and diastolic (congestive) heart failure; I48.2 Chronic atrial fibrillation; I73.9 Peripheral vascular disease, unspecified; M18.9 Osteoarthritis of first carpometacarpal joint, unspecified; E66.01 Morbid (severe) obesity due to excess calories; Z68.28 Body mass index [BMI] 28.0-28.9, adult | CPT/HCPCS: 29581; 97597; 97598 ==

== ENCOUNTER 2019-02-04 12:57 | Outpatient (CLI) | payer BC | END 2019-02-04 23:59 | disposition home or self-care (01) | LOC: WOUND 12:57 | PROVIDERS: ATTEND Family Medicine | DX: I87.313 Chronic venous hypertension (idiopathic) with ulcer of bilateral lower extremity (principal); L97.515 Non-pressure chronic ulcer of other part of right foot with muscle involvement without evidence of necrosis; L97.521 Non-pressure chronic ulcer of other part of left foot limited to breakdown of skin; L97.212 Non-pressure chronic ulcer of right calf with fat layer exposed; L97.222 Non-pressure chronic ulcer of left calf with fat layer exposed; I11.0 Hypertensive heart disease with heart failure; I50.41 Acute combined systolic (congestive) and diastolic (congestive) heart failure; I48.2 Chronic atrial fibrillation; I73.9 Peripheral vascular disease, unspecified; M18.9 Osteoarthritis of first carpometacarpal joint, unspecified; E66.01 Morbid (severe) obesity due to excess calories; Z68.28 Body mass index [BMI] 28.0-28.9, adult | CPT/HCPCS: 97597; 97598 ==

== ENCOUNTER 2019-02-11 13:00 | Outpatient (CLI) | payer BC | END 2019-02-11 23:59 | disposition home or self-care (01) | LOC: WOUND 13:00 | PROVIDERS: ATTEND Family Medicine | DX: I87.313 Chronic venous hypertension (idiopathic) with ulcer of bilateral lower extremity (principal); L97.515 Non-pressure chronic ulcer of other part of right foot with muscle involvement without evidence of necrosis; L97.521 Non-pressure chronic ulcer of other part of left foot limited to breakdown of skin; L97.212 Non-pressure chronic ulcer of right calf with fat layer exposed; L97.222 Non-pressure chronic ulcer of left calf with fat layer exposed; I11.0 Hypertensive heart disease with heart failure; I50.41 Acute combined systolic (congestive) and diastolic (congestive) heart failure; I48.2 Chronic atrial fibrillation; I73.9 Peripheral vascular disease, unspecified; M18.9 Osteoarthritis of first carpometacarpal joint, unspecified; E66.01 Morbid (severe) obesity due to excess calories; Z68.28 Body mass index [BMI] 28.0-28.9, adult | CPT/HCPCS: 97597 ==

== ENCOUNTER 2019-02-18 13:15 | Outpatient (CLI) | payer BC | END 2019-02-18 23:59 | disposition home or self-care (01) | LOC: WOUND 13:15 | PROVIDERS: ATTEND Family Medicine | DX: I87.313 Chronic venous hypertension (idiopathic) with ulcer of bilateral lower extremity (principal); L97.515 Non-pressure chronic ulcer of other part of right foot with muscle involvement without evidence of necrosis; L97.212 Non-pressure chronic ulcer of right calf with fat layer exposed; L97.222 Non-pressure chronic ulcer of left calf with fat layer exposed; L97.521 Non-pressure chronic ulcer of other part of left foot limited to breakdown of skin; I11.0 Hypertensive heart disease with heart failure; I50.41 Acute combined systolic (congestive) and diastolic (congestive) heart failure; I48.2 Chronic atrial fibrillation; I73.9 Peripheral vascular disease, unspecified; M18.9 Osteoarthritis of first carpometacarpal joint, unspecified; E66.01 Morbid (severe) obesity due to excess calories; Z68.28 Body mass index [BMI] 28.0-28.9, adult | CPT/HCPCS: 29581; 97597 ==

== ENCOUNTER 2019-02-25 11:02 | Outpatient (CLI) | payer BC | END 2019-02-25 23:59 | disposition home or self-care (01) | LOC: WOUND 11:02 | PROVIDERS: ATTEND Family Medicine | DX: I87.313 Chronic venous hypertension (idiopathic) with ulcer of bilateral lower extremity (principal); L97.515 Non-pressure chronic ulcer of other part of right foot with muscle involvement without evidence of necrosis; L97.212 Non-pressure chronic ulcer of right calf with fat layer exposed; L97.222 Non-pressure chronic ulcer of left calf with fat layer exposed; L97.521 Non-pressure chronic ulcer of other part of left foot limited to breakdown of skin; L97.511 Non-pressure chronic ulcer of other part of right foot limited to breakdown of skin; I11.0 Hypertensive heart disease with heart failure; I50.41 Acute combined systolic (congestive) and diastolic (congestive) heart failure; I48.2 Chronic atrial fibrillation; I73.9 Peripheral vascular disease, unspecified; M18.9 Osteoarthritis of first carpometacarpal joint, unspecified; E66.01 Morbid (severe) obesity due to excess calories; Z68.28 Body mass index [BMI] 28.0-28.9, adult | CPT/HCPCS: 97597 ==